=== PATIENT | female | born 1985 | race Caucasian/White ===

== ENCOUNTER 2020-04-08 15:27 | Outpatient (CLI) | payer MEDICARE, MEDICAID, SELFPAY ==
--- NOTE | ~2020-04-08 | MR_ITS ---
EXAMINATION: MR thoracic spine wo con, MR lumbar spine wo con DATE: 04/08/2020 16:30 INDICATION: Thoracic and lumbar spine pain with radiculopathy TECHNIQUE: 1. Magnetic resonance imaging (MRI) of the thoracic spine was performed without intravenous contrast. Sagittal localizer T1-weighted FSE of the cervicothoracic spine was obtained. Sequences included sag ittal T2-weighted FSE, sagittal fluid sensitive FSE STIR, sagittal T1-weighted FSE and axial T2-weigh kirsten FSE. 2. MRI of the lumbar spine was performed without intravenous contrast. Sequences included sagittal T2 -weighted FSE, sagittal T2-weighted FS FSE, sagittal T1-weighted FSE and axial T2-weighted FSE. COMPARISON: Thoracic spine radiographs and lumbar spine MRI dated 03/19/2018. FINDINGS: THORACIC SPINE MRI: Slight levocurvature of the thoracic spine. Sagittal alignment is normal. Minimal likely physiologic anterior wedging at T11 and T12. Remaining vertebral body heights are normal. T1 hyperintense hemangi marycruz at the right posterior aspect of the T7 vertebral body. Marrow signal is otherwise normal. Mild d isc height loss at T11-T12 with small right paracentral to subarticular zone disc protrusion which re sults in only minimal central canal stenosis. Remaining discs do not extend beyond the endplate pollo ns with no stenosis of the more cephalad thoracic central canal. Multilevel minimal to mild thoracic facet osteoarthritis without associated neural foraminal stenosis. Normal spinal cord signal. Paraver tebral soft tissues are unremarkable. LUMBAR SPINE MRI: Alignment is normal. Minimal anterior wedging at L1. Normal marrow signal. Mild disc desiccation and disc height loss at T12-L1 with small Schmorl's nodes and pelvis endplates. The remaining lumbar disc heights and signal are normal. The conus terminates at L1-L2. Normal cord signal. Paravertebral soft tissues are unremarkable. The following disc levels are specifically discussed: T11-T12: Annular fissure and small right paracentral disc protrusion which indents the right ventral surface of the cord. There is minimal bilateral facet joint osteoarthritis. There is no neural forami nal stenosis. There is mild central canal stenosis. T12-L1: Disc is mildly bulging. There is mild right and minimal left facet joint osteoarthritis. Ther e is no neural foraminal stenosis. There is mild central canal stenosis. L1-L2: Central canal is congenitally small with minimal disc bulge. There is mild bilateral facet chester nt osteoarthritis. There is no neural foraminal stenosis. There is mild central canal stenosis. L2-L3: Central canal is congenitally small with minimal disc bulge. There is mild bilateral facet chester nt osteoarthritis. There is no neural foraminal stenosis. There is mild central canal stenosis. L3-L4: Central canal is congenitally small with minimal disc bulge. There is mild bilateral facet chester nt osteoarthritis. There is no neural foraminal stenosis. There is mild central canal stenosis. L4-L5: Disc is minimally bulging. There is mild left and mild to moderate right facet joint osteoarth ritis. There is mild right neural foraminal stenosis. There is minimal central canal stenosis. L5-S1: The disc does not extend beyond the endplate margin. There is mild bilateral facet joint osteo arthritis. There is no neural foraminal stenosis. There is no central canal stenosis. IMPRESSION: 1. Unchanged mild spondylosis in the lumbar and lower thoracic spine with minimal spondylosis in the upper to mid thoracic spine. Reviewed, dictated and finalized at location A. IMPRESSION: 1. Unchanged mild spondylosis in the lumbar and lower thoracic spine with minim al spondylosis in the upper to mid thoracic spine.
== END 2020-04-08 15:28 | disposition home or self-care (01) ==
PROVIDERS: PCP Family Medicine; Visit Provider Nurse Practitioner Family
DX: M47.27 Other spondylosis with radiculopathy, lumbosacral region (principal); M47.814 Spondylosis without myelopathy or radiculopathy, thoracic region
CPT/HCPCS: 72146; 72148

== ENCOUNTER 2021-05-04 22:11 | Emergency (ER) | payer MEDICARE, MEDICAID, SELFPAY ==
--- NOTE | ~2021-05-04 | CT_ITS ---
EXAMINATION: CT abdomen pelvis wo con DATE: 05/05/2021 00:30 INDICATION: Kidney stones. Flank pain. TECHNIQUE: Computed tomography (CT) of the abdomen and pelvis was performed without intravenous contr ast. The dose-length product was 643.77 mGy-cm. Automated exposure control and iterative reconstructi on technique were employed. COMPARISON: CT dated 06/12/2012. FINDINGS: Lung bases are unremarkable. Heart size normal. No significant pleural or pericardial effus ion. Fatty infiltration of the liver. Status post cholecystectomy. Left adrenal nodularity with calci fications, possibly due to prior infection or trauma. The spleen, pancreas, right adrenal gland and k idneys are unremarkable. No hydronephrosis. Bladder wall is mildly prominent, although not well diste nded. No abnormal pelvic masses or fluid collections. Small fat-containing umbilical hernia. No acute osseous abnormality. No significant vascular abnormality. No lymphadenopathy. No free air or free fl uid. No acute osseous abnormality.. IMPRESSION: 1. Mild bladder wall thickening which may be due to underdistention, although cystitis should be cons idered in the appropriate clinical setting. Reviewed, dictated and finalized at location A. IMPRESSION: 1. Mild bladder wall thickening which may be due to underdistention, although c ystitis should be considered in the appropriate clinical setting.
[2021-05-04 22:17] VITALS: BP 133/77; PULSE 86; RESP 16; TEMP 36.2; O2SAT 99
[2021-05-04 23:11] LABS: Basophils Absolute Auto 0.1 K/mm3 (0.0-0.1); Basophils Percent Auto 0.6 % (0.2-1.2); Eosinophils Absolute Auto 0.1 K/mm3 (0-0.3); Eosinophils Percent Auto 0.9 % (0-4.4); Hematocrit 38.7 % (37.0-47.0); Hemoglobin 13.7 g/dL (12.0-15.0); Immature Granulocyte Absolute 0.03 K/mm3 (0.00-0.031); Immature Granulocyte Percent A 0.3 % (0-0.5); Lymphocytes Absolute Auto 4.57 K/mm3 (0.9-3.2); Lymphocytes Percent Auto 40.4 % (18.3-44.2); Mean Corpuscular HGB Conc 35.4 g/dl (32-36); Mean Corpuscular Hemoglobin 32.2 pg (26-34); Mean Corpuscular Volume 91.1 fl (80-100); Mean Platelet Volume 9.9 fl (7.4-10.4); Monocytes Absolute Auto 0.6 K/mm3 (0.1-0.6); Monocytes Percent Auto 4.9 % (2.6-8.5); Neutrophils Percent Auto 52.9 % (45.5-73.1); Platelet Count Result 279 k/mm3 (150-375); Red Blood Count 4.25 M/mm3 (4.2-5.4); Red Cell Distribution Width 13.1 % (11.5-14.5); White Blood Count 11.3 K/mm3 (4.5-10.0)
[2021-05-04] MEDS: SODIUM CHLORIDE 0.9% IV 1,000 ML 999 ML IV CONT (23:20)
[2021-05-04 23:22] VITALS: BP 117/72; PULSE 77; RESP 21; O2SAT 97
--- NOTE | 2021-05-04 23:30 | PC.NURSE ---
. asked for urine sample. pt. reports she cannot go at this time.
[2021-05-04 23:37] LABS: Anion Gap 7 mmol/L (8-16); Blood Urea Nitrogen 5 mg/dL (7-17); Calcium 8.9 mg/dL (8.4-10.2); Carbon Dioxide 31 mmol/L (22-30); Chloride 98 mmol/L (98-107); Estimated CRCL calculation 126 ml/min; Estimated Glomerular Filt Rate > 60; Glucose 93 mg/dL (65-110); Potassium 2.5 mmol/L (3.4-5.0); Sodium 136 mmol/L (137-145)
--- NOTE | 2021-05-05 00:40 | ED.GENADULT ---
HPI - General Adult General Chief complaint: Back Pain/Injury <ARCHANA Peña Last Filed: 05/05/21 01:41> Stated complaint: left flank pain <ARCHANA Peña Last Filed: 05/05/21 01:41> Time Seen by Provider: 05/04/21 22:58 <ARCHANA Peña Last Filed: 05/05/21 01:41> Source: patient and RN notes reviewed <ARCHANA Peña Last Filed: 05/05/21 01:41> Mode of arrival: ambulatory <ARCHANA Peña Last Filed: 05/05/21 01:41> Limitations: no limitations <ARCHANA Peña Last Filed: 05/05/21 01:41> History of Present Illness HPI narrative: Patient is a 35-year-old female who presents with left-sided flank pain for the last 2 days patient denies any fever chills nausea vomiting urinary symptoms or bowel habit changes patient on arrival appears uncomfortable but not distressed patient presents with family and has not been seen for this complaint <ARCHANA Peña Last Filed: 05/05/21 01:41> Related Data Home medications: Home Medications Medication Instructions Recorded Confirmed bupropion HCl 75 mg tablet 75 mg PO DAILY tablet 05/05/21 05/05/21 famotidine 20 mg tablet 20 mg PO 3XW tablet 05/05/21 05/05/21 metoclopramide HCl 10 mg tablet 10 mg PO BID tablet 05/05/21 05/05/21 <ARCHANA Peña Last Filed: 05/05/21 01:41> Allergies/adverse reactions: Allergies Allergy/AdvReac Type Severity Reaction Status Date / Time No Known Allergies Allergy Verified 01/11/21 10:32 <ARCHANA Peña Last Filed: 05/05/21 01:41> Review of Systems Review of Systems: All systems reviewed & are unremarkable except as noted in HPI and below <ARCHANA Peña Last Filed: 05/05/21 01:41> PMFSH Past Medical History Medical History: Medical History (Updated 05/05/21 @ 12:27 by Jory He MD) Anxiety Chronic left shoulder pain Chronic low back pain GERD without esophagitis Intellectual disability Speech impediment <GARRISON PeñaCassie - Last Filed: 05/05/21 01:41> Family History Family History: Family History Mother Patient's mother is in good health Father Family history of malignant neoplasm Patient's father is Other Cerebrovascular accident Diabetes mellitus <Jose MartinARCHANA - Last Filed: 05/05/21 01:41> Social History Social History: Social History Smoking packs per day: 0.5 Smoking cigarettes per day: 10.0 Smoking status: Former smoker Second hand tobacco smoke exposure: No Smoking end date: 10/08/12 Alcohol intake: never <Jose Martin ARCHANA Last Filed: 05/05/21 01:41> Exam Narrative: GENERAL: Well-appearing, well-nourished, and in no acute distress. HEAD: Normocephalic, atraumatic. EYES: PERRLA and EOMI. ENT: Nares clear, no rhinorrhea or epistaxis. Mucous membranes moist. CHEST: Clear to auscultation. No respiratory distress. No wheezes rales or rhonchi HEART: Regular rate and rhythm. No murmur heard. Normal peripheral pulses. ABDOMEN: Soft, left sided abdominal tenderness no rebound or guarding, nondistended, normal active bowel sounds. EXTREMITIES: Normal range of motion. No edema. SKIN: Warm, dry, no rash. NEURO: No focal deficits. Alert and oriented x3. Cranial nerves II through XII grossly intact PSYCH: Normal mood and affect. <Jose Martin RENEArCassie - Last Filed: 05/05/21 01:41> Course Vital Signs Vital signs: Vital Signs Temperature 36.2 C L 05/04/21 22:17 Pulse Rate 86 05/04/21 22:17 Respiratory Rate 16 05/04/21 22:17 Blood Pressure 133/77 05/04/21 22:17 Pulse Oximetry 99 05/04/21 22:17 Temperature 36.2 C L 05/04/21 22:17 Pulse Rate 83 05/05/21 01:54 Respiratory Rate 18 05/05/21 01:54 Blood Pressure 108/59 L 05/05/21 01:54 Pulse Oximetr
[2021-05-05 01:22] LABS: Add Urine Microscopic? NO; Appearance Urine Clear (Clear); Bilirubin Urine Negative (Negative); Blood Urine Negative (Negative); Color Urine Straw (Yellow); Glucose Urine UA Negative (Negative); Ketones Urine Negative (Negative); Leukocyte Esterase Ur Negative LEU/UL (Negative); Nitrate Urine Negative (Negative); Protein Urine Negative (Negative); Specific Grav Ur 1.008 (1.001-1.035); Urobilinogen Urine Negative mg/dL (<2.0)
[2021-05-05] MEDS: POTASSIUM CHLORIDE 20 MEQ PACKET (FOR LIQUID) 40 MEQ PO (01:35)
[2021-05-05 01:54] VITALS: BP 108/59; PULSE 83; RESP 18; O2SAT 98
== END 2021-05-05 01:57 | disposition home or self-care (01) ==
PROVIDERS: Emergency Medicine; Emergency Medicine Emergency Medical Services; Emergency Provider Emergency Medicine; PCP Family Medicine
DX: E87.6 Hypokalemia (principal); R10.9 Unspecified abdominal pain; F41.9 Anxiety disorder, unspecified; K21.9 Gastro-esophageal reflux disease without esophagitis
CPT/HCPCS: 36415; 74176; 80048; 81003; 81025; 83735; 85025; 96361; 96374; 99284; A9270; J0131; J7030

== ENCOUNTER 2025-03-07 20:22 | Emergency (ER) | payer OTHER, SELFPAY ==
--- NOTE | ~2025-03-07 | CT_ITS ---
EXAMINATION: CT abdomen pelvis w con DATE: 03/08/2025 01:05 INDICATION: Right upper quadrant abdominal pain. Leukocytosis. TECHNIQUE: Computed tomography (CT) of the abdomen and pelvis was performed with 100 mL Omnipaque-350 intravenous contrast. Automated exposure control and iterative reconstruction technique were employe d. The dose-length product was 902.16 mGy-cm. COMPARISON: None FINDINGS: Lung bases are clear. Heart size is normal. No pericardial or pleural effusion. Cholecystectomy clips the gallbladder fossa. Liver, spleen, pancreas, bilateral kidneys and right adrenal gland are normal . Calcifications at the left adrenal gland likely sequela prior infection or hemorrhage. Bowels inclu ding the appendix are normal. Bladder is normal. Uterus and right adnexa are unremarkable. 1.7 cm per ipherally enhancing corpus luteum cyst at the left ovary. Small bilateral fat-containing inguinal her nias. Tiny fat-containing umbilical hernia. No free intraperitoneal gas or fluid. 7.5 x 7.5 x 2.2 cm loculated fluid collection in the subcutaneous fat at the right buttock which could represent an absc ess or hematoma/seroma. IMPRESSION: 1. No acute intra-abdominal/pelvic process. 2. 7.5 x 7.5 x 2.2 cm loculated subcutaneous fluid collection at the right buttock which could repres ent a hematoma/seroma or abscess in the appropriate clinical setting. Dr. Kenyon discussed these fi ndings with Dr. Cardenas at 11:15 AM. 3. Bilateral small fat-containing inguinal hernias and tiny fat-containing umbilical hernia. Reviewed, dictated and finalized at location A. IMPRESSION: 1. No acute intra-abdominal/pelvic process. 2. 7.5 x 7.5 x 2.2 cm loculated subcutaneous fluid collection at the right butt ock which could represent a hematoma/seroma or abscess in the appropriate clini antony setting. Dr. Kenyon discussed these findings with Dr. Cardenas at 11:15 AM. 3. Bilateral small fat-containing inguinal hernias and tiny fat-containing umbi lical hernia.
--- OUTSIDE RECORDS SUMMARY | 2025-03-07 20:26 | XMS_ITS | Data Portability ---
Author Organization [facility] Address [address] [place] [address] Assessment No assessment recorded. Plan of Treatment Reminders Order Date Submit Date Provider Last Modified By Organization Details Last Modified Time Details Appointments None recorded. Lab cytology report, thin prep, smear or scraping, cervical or vaginal 2024 025 [facility], [address], [place], [address], 5 03:17:57 chlamydia trachomatis + neisseria gonorrhoeae + trichomonas vaginalis rRNA panel, TARA+probe 2024 025 [facility], [address], [place], [address], 5 03:08:24 Referral None recorded. Procedures None recorded. Surgeries None recorded. Imaging None recorded. Medication Orders None recorded. Patient TargetsNo targets recorded. Patient Instructions Encounter Date Encounter Id Patient Instructions Last Modified By Organization Details Last Modified Time 11/17/2024 [id number] Attending Physician Attestation I did not personally see or examine the patient with the resident. I was physically present to provide indirect supervision through entire encounter. I have reviewed the documentation and agree with the history, physical findings, work-up, and medical decision making as recorded. Ladonna Austin MD [email or web address] Not available 11/17/2024 12:15:41 Reason for Referral None Reported. Results Created Date Observation Date Name Description Value Unit Range Abnormal Flag Note LastModifiedBy Organization Detail LastModifiedTime 11/17/19 25 11/18/2024 CT, NG, TRICH VAG BY TARA chlamydia by TARA NEGATI VE negati ve Not Available [facility]) [address], [place], [address], 11/19/2024 03:08:24 11/17/19 25 11/18/2024 CT, NG, TRICH VAG BY TARA gonococcus by TARA NEGATI VE negati ve Not Available [facility]) [address], [place], [address], 11/19/2024 03:08:24 11/17/19 25 11/18/2024 CT, NG, TRICH VAG BY TARA trich vag by TARA NEGATI VE negati ve Not Available [facility] ([facility]) [address], [place], [address], 11/19/2024 03:08:24 11/17/1911/18/2024 IGP, APTIM A HPV, RFX 16/18 ,45 HPV aptima POSITI VE negati ve abnormal This nucle ic acid ampli ficat ion test detec ts fourt een high- risk HPV types (16,1 8,31, 33,35 ,39,4 5,51, 52,56 ,58,5 9,66, 68) witho ut diffe renti ation . Not Available [facility] ([facility]) [address], [place], [address], 11/21/2024 03:17:57 11/17/1911/19/2024 IGP, APTIM A HPV, RFX 16/18 ,45 diagnosis: COMMEN T NEGAT DARA FOR INTRA EPITH ELIAL LESIO N OR ELIZABETH JOSE . Not Available [facility] ([facility]) [address], [place], [address], 11/21/2024 03:17:57 11/17/1911/19/2024 IGP, APTIM A HPV, RFX 16/18 ,45 specimen adequacy: COMMEN T Satis facto ry for evalu ation . Endoc ervic al and/o r squam ous metap lasti c cells (endo cervi antony compo nent) are prese nt. Not Available [facility] ([facility]) [address] [place], [address], 11/21/2024 03:17:57 11/17/19 25 11/19/2024 IGP, APTIM A HPV, RFX 16/18 ,45 clinician provided ICD10: HENRIQUE Asher Z01.4 19 Not Available [facility] ([facility]) [address] [place], [address], 11/21/2024 03:17:57 11/17/19 25 11/19/2024 IGP, APTIM A HPV, RFX 16/18 ,45 performed by: HENRIQUE Trevino ams, Luaren asher (ASCP ) Not Available [facility] ([facility]) [address] [place], [address], 11/21/2024 03:17:57 11/17/19 25 11/19/2024 IGP, APTIM A HPV, RFX 16/18 ,45 . . Not Available [facility] ([facility]) [address] [place], [address], 11/21/2024 03:17:57 11/17/19 25 11/19/2024 IGP, APTIM A HPV, RFX 16/18 ,45 note: HENRIQUE Asher The Pap smear is a scree jodie test timmy florez to aid in the detec tion of kailyn ligna nt and malig nant condi tions of the uteri ne cervi x. It is not a diagn ostic proce dure and shoul d not be used as the sole means of detec ting cervi antony cance r. Both false -posi tive and false -nega tive repor ts do occur . Not Available [facility]) [address], [place], [address], 11/21/2024 03:17:57 11/17/19 25 11/19/2024 IGP, APTIM A HPV, RFX 16/18 ,45 test methodology: HENRIQUE T This liqui d based ThinP rep(R ) pap test was daniel florez with the use of an image guide deepak thorne Not Available [facility] ([facility]) [address] [place], [address], 11/21/2024 03:17:57 11/17/1911/19/2024 IGP, APTIM A HPV, RFX 16/18 ,45 HPV genotype reflex COMMEN T Erikate argelia met, see HPV Genot ype resul ts. Not Available [facility] ([facility]) [address] [place], [address], 11/21/2024 03:17:57 11/17/19 25 11/20/2024 HPV GENOT YPES 16/18 ,45 HPV genotype 16 Negati ve negati ve Not Available [facility] ([facility]) [address], [place], [address], 11/21/2024 03:17:59 11/17/1911/20/2024 HPV GENOT YPES 16/18 ,45 HPV genotype 18,45 Negati ve negati ve Not Available [facility] ([facility]) [address] [place], [address], 11/21/2024 03:17:59 Result Notes None recorded. Problems Name Problem SNOMED Code Status Onset Date Resolution Date Notes Provider Name and Address Organization Details Recorded Time Obesity 203802294 Active 2024 KYLEE EDGE MD Attn: Carmelo eubanks,[address], [place], [address], [facility] 11:56:21 Arthritis 7504878 Active 2024 KYLEE EDGE MD Attn: Carmelo eubanks,[address], [place], [address], [place] - [facility] 5 11:56:51 Type 2 diabetes mellitus 70369042 Active 2024 KYLEE EDGE MD Attn: Carmelo eubanks,[address] [facility], [place], [address], [facility] 5 11:57:54 Gastroesophage al reflux disease 142796762 Active 2024 KYLEE EDGE MD Attn: Carmelo eubanks,[address], [place], [address], [facility] - [facility] 5 12:04:08 Intellectual disability 002302047 Active 2024 KYLEE EDGE MD Attn: Carmelo eubanks,[address] [facility], [place], [address], [facility] 5 12:04:24 Problem Notes None recorded. Medical Equipment None Reported. Allergies No known drug allergies Medications Name Sig Start Date Stop Date Status Note LastModified by Organization Details LastModified Time cyclobenzap rine 10 mg tablet Take 1 tablet 3 times a day by oral route. active Not Available Not Available No t Available gabapentin 600 mg tablet Take 1 tablet 3 times a day by oral route. active Not Available Not Available No t Available ibuprofen 800 mg tablet Take 1 tablet 3 times a day by oral route. active Not Available Not Available No t Available sucralfate 1 gram tablet Take 1 tablet 3 times a day by oral route. active Not Available Not Available No t Available famotidine 40 mg tablet Take 1 tablet every day by oral route. active Not Available Not Available No t Available prednisone 20 mg tablet Take 1 tablet 3 times a day by oral route. 11/17 completed Not Available Not Available Not Available ciprofloxac in 500 mg tablet TAKE 1 TABLET BY MOUTH EVERY 12 HOURS FOR 3 DAYS 11/17 completed Not Available Not Available Not Available propranolol 10 mg tablet Take 1 tablet 3 times a day by oral route. active Not Available Not Available No t Available amitriptyli ne 25 mg tablet Take 1 tablet every day by oral route. active Not Available Not Available No t Available dicyclomine 20 mg tablet Take 1 tablet 3 times a day by oral route. active Not Available Not Available No t Available gemfibrozil 600 mg tablet TAKE 1 TABLET BY MOUTH TWICE DAILY DIRECTED active Not Available Not Available No t Available pantoprazol e 40 mg tablet,aissatou yed release Take 1 tablet every day by oral route. active Not Available Not Available No t Available bupropion HCl 75 mg tablet TAKE 1 TABLET BY MOUTH TWICE DAILY active Not Available Not Available No t Available metformin ER 500 mg tablet,exte nded release 24 hr TAKE 1 TABLET BY MOUTH EVERY DAY DIRECTED FOR DIABETES active Not Available Not Available No t Available colestipol 1 gram tablet TAKE 2 TABLETS BY MOUTH EVERY DAY IN THE MORNING active Not Available Not Available No t Available metoclopram jillian 10 mg tablet Take 1 tablet 3 times a day by oral route as needed. active Not Available Not Available No t Available duloxetine 20 mg capsule,del ayed release Take 1 capsule every day by oral route. active Not Available Not Available No t Available duloxetine 60 mg capsule,del ayed release Take 1 capsule every day by oral route. active Not Available Not Available No t Available Vitals Date Recorded Body weight Body mass index (BMI) Body height Oxygen saturation Oxygen saturation in Arterial blood by Pulse oximetry Heart rate Systolic blood pressure Diastolic blood pressure Provider Name and Address Organization Details Last Updated DateTime 58035.0 1 g 35.1 kg/m2 160.02 cm 96 % 96 % 98 /min 126 mm[Hg] 88 mm[Hg] Unique Peres MA [facility] 11:37:42 Social History Question Answer Notes LastModified by [employer] Details LastModified Time Tobacco Smoking Status Former Smoker Unique Peres MA null, [facility] 11/17/2024 11:34:41 What Was The Date Of Your Most Recent Tobacco Screening? 11/17/2024 Information not available 11/17/2024 Do You Have Smoke And Carbon Monoxide Detectors In Your Home? Yes Information not available 11/17/2024 Sex: Unknown Functional Status Question Answer Note LastModified by Organizat ion Details LastModified Time Do you use any illicit or recreational drugs? No Information not available 11/17/2024 Do you or have you ever used any other forms of tobacco or nicotine? No Information not available 11/17/2024 What is your level of alcohol consumption? None Information not available 11/17/2024 Mental Status None recorded. Family History Relationship Description Onset Age of this Age Resolved Age Notes LastModified by Organization Details LastModified Time Sister Depressive disorder [email or web address] Not available 11/08 11:35:49 Sister Migraine [email or web address] Not availa ble 11/17/2024 11:36:01 Notes:ovarian cancer sister Medical History Condition Response Diabetes Y Anxiety Disorder Y Acid Reflux (GERD) Y Depression Y Gynecological History Statement/Question Response Flow Moderate Date of LMP 11/13/2024 Menses Monthly Y STIs/STDs N Duration of Flow (days) 4 Age at Menarche 10 Current Control Method None LMP Definite Obstetrics History GPAL:G 1 P 1 0 0 1 Type Value Multiple Births 0 Full Term 1 Induced 0 Spontaneous 0 Premature 0 Living 1 Ectopics 0 Total 1 Past Encounters Encounter ID Performer Location Encounter Start Date Encounter Closed Date Diagnosis/Indication Diagnosis SNOMED-CT Code Diagnosis ICD10 Code Diagnosis Note [id number] LADONNA AUSTIN MD [facility] (PHOTOGRAPHY MANAGER) [address] [place] [phone] 11/17/2024 10:44:11 11/26/2024 14:30:44 Gynecologic examination 55958771 Z01.419 - Reviewed risks for infection and cancer; ordered screening tests as appropriat e- Patient to follow up with PCP for routine cardiovasc ular disease screening Health Concerns Section Related Observation LastModified by Organization Detai ls LastModified Time None Recorded Concern Status LastModified by Organization Details LastModified Time None Recorded Advance Directives Directive None Recorded Payers Encounter Date Sequence Insurance Name Policy Number Policy Alexander Covered Member ID Alexander Member ID Guarantor Name 11/17/2024 1 [place] Stephani Mcneill [id number] Stephani Mcneill 11/17/2024 2 [employer] [place] - [place] ON OR AFTER 2020 (MEDICAID REPLACEMENT - HMO) Stephani Mcneill [id number] Stephani Mcneill Notes Date Note Type Note Provider Name and Address Organization Details Recorded Time 11/17/2024 text/html Annual GYNReport ed bypatient.Menstrua l cycle:Normal menses Urinary symptoms:No hematuria; No incontinence Vulva:No genital lesion Vagina:Normal vaginal discharge Breast:No breast pain; No breast lump; No nipple discharge Sexual complaints:Denies being sexually active. No concern for STI.Notes:Mammogra m ordered through primary. Stephani is a 39 y/o F former nicotine dependence, T2DM, arthritis who presents to the clinic to establish care. Previously saw [facility]. Has not been seen in at least 3 or 4 years. No issues today.Is on social security. LADONNA AUSTIN MD Attn: [employer]ing[address] [place], [address], [facility] 11/25/2024 17:57:12 OBGyn Episode Ob Episode Information Episode Created Date Number of Fetuses Patient Bloodtype Patient rh Status Prepregnancy Weight lbs Domestic Partner Domestic Partner Phone Father Name [employer] Manager Architect Status 11/17/19 25 1 CLOSED Fetus Data First Name Last Name Admitted to NICU Weight (g) Sex Living Outcome Pediatric Complications Fetus ID Race Codes Race Delivery Type F Full Term [id number] Vaginal Phillip Calculation Initial Phillip Date Initial Exam Date Initial Exam Provider Initial Ultrasound Date Last Menstrual Period Date Ultra Sound Weeks Gestation 0 Eighteen To Twenty Week Phillip Update Ultra Sound Date Fundal Height At Umbil Quickening Date Ultra Sound Latest Weeks Gestation Final Phillip Confirmed By Final Phillip Confirmed Date Final Phillip Date Ultra Sound Latest Days Gestation 0 0 Menstrual History Last Menstrual Date Menses Monthly On Bcp Conception Prior Menses Frequency Hcg Plus Date Menarche Onset Age Delivery Information Delivery Date Delivery Type Labor Anesthesia Weeks Gestation Incision Type Labor Labor Length Hrs Delivered By Post Complications Tubal Sterilization Discharge Date Comments 0 40 Discharge Information Feeding Method Contraceptive Method Maternal HG B and HCT Levels
--- OUTSIDE RECORDS SUMMARY | 2025-03-07 20:26 | XMS_ITS ---
Author Organization [facility] Address [address] [place] [address] Care Team Providers Care Director Of Marketing And Promotions Name Role Phone ThrasherVuJon Unavailable [phone] BAKARI LEE Unavailable [phone] Problems Problem Type SNOMED Code ICD Code Onset Dates Problem Status W/U Status Risk Notes Problem Chronic kidney disease stage 2 (959677290) Chronic kidney disease, stage 2 (mild) (N18.2) Active confirmed Problem Elevation of levels of liver transaminase levels (R74.01) Active confirmed Problem Hyperlipidemia (32867962) Hyperlipidemia, unspecified (E78.5) Active confirmed Problem Diabetic renal disease (430493278) Type 2 diabetes mellitus with diabetic chronic kidney disease (E11.22) Active confirmed Problem Metabolic disorder (11237250) Metabolic disorder, unspecified (E88.9) Active confirmed Problem Disturbance in speech (88465848) Unspecified speech disturbances (R47.9) Active confirmed Problem Fatty liver (476935599) Fatty (change of) liver, not elsewhere classified (K76.0) Active confirmed Encounters Encounter Location Date Provider Diagnosis [place] [facility] [address] [facility] [address] [place] [address] 02/20/2025 Jon Thrasher Chronic kidney disease, stage 2 (mild) N18.2 ; Elevation of levels of liver transaminase levels R74.01 ; Hyperlipidemia, unspecified E78.5 ; Type 2 diabetes mellitus with diabetic chronic kidney disease E11.22 ; Metabolic disorder, unspecified E88.9 ; Unspecified speech disturbances R47.9 and Fatty (change of) liver, not elsewhere classified K76.0 Assessments Encounter Date Diagnosis (ICD Code) Assessment Notes Treatment Notes Treatment Clinical Notes Section Notes 02/20/2025 Chronic kidney disease, stage 2 (mild) (ICD-10 - N18.2) 02/20/2025 Elevation of levels of liver transaminase levels (ICD-10 - R74.01) 02/20/2025 Hyperlipidemia, unspecified (ICD-10 - E78.5) 02/20/2025 Type 2 diabetes mellitus with diabetic chronic kidney disease (ICD-10 - E11.22) 02/20/2025 Metabolic disorder, unspecified (ICD-10 - E88.9) 02/20/2025 Unspecified speech disturbances (ICD-10 - R47.9) 02/20/2025 Fatty (change of) liver, not elsewhere classified (ICD-10 - K76.0) Plan Of Treatment Next Appt Details Provider Name:Jon Price , 03/27/2025 02:15:00 PM, [address] [facility] [address], [place], [facility], Progress Notes * Manuel NAVAOB:[birth year] (39 yo F)Acc No.[id number]:02/20/2025 Progress Notes Patient: Stephani MONSALVE Provider: Leo PAT MD, F.A.C.P, F.A.S.N. :1985 A ge:39 Y S ex:Female Date:02/20/2025 Address:[address] [place] [address] Subjective: * Chief Complaints: * * Medical History: Objective: * Vitals: Assessment: * Assessment: 1. C hronic kidney disease, stage 2 (mild) - N18.2 (Primary) 2 . E levation of levels of liver transaminase levels - R74.01 3 . H yperlipidemia, unspecified - E78.5 4 . T ype 2 diabetes mellitus with diabetic chronic kidney disease - E11.22 5 . M etabolic disorder, unspecified - E88.9 6 . U nspecified speech disturbances - R47.9 7 . F atty (change of) liver, not elsewhere classified - K76.0 Plan: * Treatment: * Billing Information: * Visit Code: 55854 Office Visit, New Pt., Level 5. * Procedure Codes: * Electronic signature of Mallory Thrasher MD on 03/07/2025 at 08:26 PM CDT Sign off status: Pending * Provider: Leo PAT MD, F.A.C.P, F.A.S.N. Date: 0 02/20/2025 Generated for Printing/Faxing/eTransmitting on: 0 03/07/2025 08:26 PM CDT
--- OUTSIDE RECORDS SUMMARY | 2025-03-07 20:26 | XMS_ITS | CONTINUITY OF CARE DOCUMENT ---
Author Name shailesh cash Address Unknown Organization [facility] Address [address] [facility] [address] [place] [address] Phone [phone] Care Team Providers Care Repatcher Name Role Phone Dusty Thrasher MD Unavailable [phone] Dusty Thrasher MD Unavailable [phone] INSURANCE PROVIDERS Payer name Policy type / Coverage type [place] red green party ID [employer] [facility] use Medicare [id number] [employer] OF [place] Medicaid [id number]
--- OUTSIDE RECORDS SUMMARY | 2025-03-07 20:26 | XMS_ITS | Patient Health Record ---
Author Organization [facility] Address [address] [place] [address] Care Team Providers Care Microarray Specialist Name Role Phone ThrasherKimt Unavailable [phone] CHANELLPraveenBAKARI Unavailable [phone] Reason For Referral No Information Problems Problem Type SNOMED Code ICD Code Onset Dates Problem Status W/U Status Risk Notes Problem Diabetic renal disease (515500553) Type 2 diabetes mellitus with diabetic chronic kidney disease (E11.22) Active confirmed Problem Hyperlipidemia (22220849) Hyperlipidemia, unspecified (E78.5) Active confirmed Problem Metabolic disorder (91621445) Metabolic disorder, unspecified (E88.9) Active confirmed Problem Fatty liver (591268651) Fatty (change of) liver, not elsewhere classified (K76.0) Active confirmed Problem Chronic kidney disease stage 2 (654422413) Chronic kidney disease, stage 2 (mild) (N18.2) Active confirmed Problem Disturbance in speech (45308939) Unspecified speech disturbances (R47.9) Active confirmed Problem Elevation of levels of liver transaminase levels (R74.01) Active confirmed Encounters Encounter Location Date Provider Diagnosis [place] [facility] [address] [facility] [address] [place] [address] 02/20/2025 Jon Thrasher Chronic kidney disease, stage [...] Of Treatment Next Appt Details Provider Name:Jon Thrasher , 03/27/2025 02:15:00 PM, [address] [facility] [address], [address],
--- OUTSIDE RECORDS SUMMARY | 2025-03-07 20:27 | XMS_ITS | Data Portability ---
Author Organization [place] [facility], Main Office Address [address] [place] [address] Care Team Providers Care Scrap Collector Name Role Phone ARBEN RINALDI Primary Care Provider Assessment No assessment recorded. Plan of Treatment Reminders Order Date Submit Date Provider Last Modified By Organization Details Last Modified Time Details Appointments Any 15 2024 04:15P M Nicolle draper MD Not available Not available Not available New Patie nt 40 2024 01:00P M BALBIR Pederson Not available Not available Not available Lab lipid panel , serum [address] (Lab), [address] [place], [address], 02/17/2025 17:05:38 CBC w/ auto diff [address] (Lab), [address] [place], [address], 02/17/2025 17:05:39 TSH, serum or plasm a 2024 025 [facility] (Lab), [address] [place], [address], 02/10/2025 17:41:02 CMP, serum or plasm a [address] (Lab), [address] [place], [address], 02/17/2025 17:05:39 glyco hemog lobin , total , blood 2024 025 [facility] (Lab), [address] [place], [address], 02/10/2025 20:27:55 micro album in, urine 2024 025 [facility] (Lab), [address] [place], [address], 02/10/2025 17:18:50 CBC w/ auto diff 2024 025 [facility] (Lab), [address] [place], [address], 11/06/2024 14:33:30 CMP, serum or plasm a 2024 025 [facility] (Lab), [address] [place], [address], 11/06/2024 14:33:30 lipid panel , serum 2024 025 [facility] (Lab), [address] [place], [address], 11/06/2024 14:33:29 vitam in D, 25-hy droxy , total , serum 2024 025 [facility] (Lab), [address] [place], [address], 11/06/2024 14:33:30 TSH + free T4, serum 2024 025 [facility] (Lab), [address] [place], [address], 11/06/2024 14:33:30 hepat itis C virus Ab, serum 2024 025 [facility] (Lab), [address] [place], [address], 11/06/2024 14:33:30 HbA1c (hemo globi n A1c), blood 2024 025 [facility] (Lab), [address] [place] [address], [address], 11/06/2024 14:33:29 Referral pain manag ement refer ral - Pleas call patie nt to sched ule an appoi ntmen t. Thank you. 2024 025 [facility], [facility] [address], [place], [address], 02/12/2025 13:13:56 physi antony thera pist refer ral - Pleas e call patie nt to sched ule an appoi ntmen t. Thank you. 2024 025 [facility], [address] [place] [address], [address], 02/11/2025 16:02:21 gastr oente rolog ist refer ral - Pleas e call patie nt to sched ule an appoi ntmen t. Thank you. 2024 025 [facility], [address] [place] [address], [address], [address], 02/12/2025 12:37:[address] refer ral - Pleas e call patie nt to sched ule an appoi ntmen t. Thank you 2024 025 [facility], [address], [address], 02/12/2025 12:11:00 gastr oentmichel rolog ist refer ral - Pleas e call patie nt to sched ule an appoi ntmen t. Thank you. 2024 025 [facility], [address] [facility]udy [facility], [address], [place], [address], 02/11/2025 15:52:23 podia trist refer ral - Pleas e call patie nt to sched ule an appoi ntmen t. Thank you. 2024 025 [facility], [address] [facility], [address], [place], [address], 02/11/2025 15:31:40 neuro logis t refer ral - Pleas e call patie nt to sched ule an appoi ntmen t. Thank you. 2024 025 [facility] Nelson Wadsworth MD, [address] [facility], [facility], [place], [address], 03/03/2025 12:20:37 physi antony thera pist refer ral - Pleas e call pt to sched ule 2023 024 56 [facility], [facility], [address] [place], [address], 08/27/2024 08:54:38 Procedures None recor ded. Surgeries None recor ded. Imaging MAMMO , scree jodie, bilat eral - Pleas e call patie nt to sched ule. 2024 025 [email or web address] [facility] ([facility]), [address] [place], [address], 02/11/2025 14:23:47 XR, cervi antony spine , 2 or 3 view 2024 025 [facility] ([facility] Scheduling), [address] [place], [address], 11/17/2024 13:53:47 XR, thora cic spine , 3 view 2024 025 [facility] ([facility] Scheduling), [address] [place], [address], 11/17/2024 13:54:13 XR, lumbo sacra l spine , 4 or more view 2024 025 [facility] ([facility] Scheduling), [address] [place], [address], 11/13/2024 17:29:46 MAMMO , scree jodie, digit al, bilat eral - Pleas e call patie nt to sched ule. 2024 025 [email or web address] [facility] (Scheduling), [address] [place], [address], 12/17/2024 11:23:00 Medication Orders lisin opril 2.5 mg table t [email or web address] [id number], [address], [place], [place], [id number], 02/10/2025 18:53:13 Conto ur Next Test Strip s 2024 025 [facility]88386, [address], [place], [place], [id number], 11/13/2024 11:58:00 Alcoh ol Prep Pads 2024 025 [facility] #10744, [address], [place], [place], [id number], 11/13/2024 11:58:04 bupro pion HCl 75 mg table t 2024 025 [facility] #48958, [address], [place], [place], [id number], 11/13/2024 11:58:06 ketor olac 30 mg/mL (1 mL) injec tion solut ion 2023 024 [email or web address] Not available 02/10/2025 14:54:29 bupro pion HCl 75 mg table t 2023 024 [email or web address] [facility], [address], [place], [place], [id number], 07/28/2024 11:03:45 Patient TargetsNo targets recorded. Patient Instructions Encounter Date Encounter Id Patient Instructions Last Modified By Organization Details Last Modified Time 11/05/2024 [id number] Follow up in 3 months for Medicare Annual Wellness (Arben) Obtain labs Tests: Mammogram Referral: Recommend: Tetanus vaccine Not available 11/05/2024 14:55:52 11/13/2024 [id number] dementia rating scale-2* Not available 11/13/2024 11:57:51 multi-dimensiona l health assessment questionnaire* Not available 11/13/2024 11:57:51 care plan* Not available 11/13 11:57:50 advance directiv es: care instructions Not available 11/13/2024 11:57:51 advance care planning: care instructions Not available 11/13/2024 11:57:50 [place] Advance Directives Not available 11/13/2024 11:57:50 Follow up in Jan [place] Prescriptions sent to pharmacy Tests: Complete xrays Referral: Recommend: Tetanus vaccine Shingles vaccine Personalized Health Plan and Screening Recommendations Advance Directives - Do you have one? No You have indicated that you are capable of preparing your advance care directive Advance Directives - Do we have your advance directive on file in your health record? Primary Prevention/Interven tion (prevents or decreases the chance of common diseases from occurring) Smoking Risk: Non Smoker Alcohol Misuse Screening: Negative Weight: Overweight try to lose 10% of your body weight Physical activity: Appropriate physical activity minimum of 20-30 minutes activity that causes mild breathlessness/day Nutrition: Average Refer to attached handout Heart-Healthy Diet: After Your Visit Fall Risk (screened today): Low Refer to attached handout Preventing Falls: After your Visit Vaccines Pneumococcal: No further needed Influenza: Your next one in the fall of this year Chronic Disease Risks Stroke: Intermediate Risk I have no recommendations Heart Attack: Intermediate Risk I have no recommendations Clogging of the Arteries: Intermediate Risk I have no recommendations Diabetes: High Risk Active diagnosis, Continue current treatment plan Secondary Prevention/Interven tion (detects treatable diseases before they may cause symptoms, disability, or ) Breast Cancer Screening with mammogram: Ordered Cervical/Uterine/Ov jaylan Cancer Screening: Recommended today Osteoporosis Screening: No screening necessary Date Screening Last Performed: Colon Cancer Screening: No screening necessary Date Screening Last Performed: Eye Disease Screening: Recommended today Dementia Risk: Low I have no recommendations Depression Screening: Negative Not available 11/13/2024 11:56:33 02/10/2025 [id number] diabetic eye exam* ATHENAFAX Not availa ble 02/10/2025 17:24:25 Reason for Referral Physical Therapist Referral for Low back pain Please call pt to schedule Referring Physician: Arben Rinaldi, Family Medicine, Encounter Date: 07/28/2024 University Administrative Assistant Referral for Type 2 diabetes mellitus without complication Please call patient to schedule an appointment. Thank you. Referring Physician: Nicolle Ayala, Internal Medicine, Encounter Date: 02/10/2025 Psychiatrist Referral for Mo derate recurrent major depression Please call patient to schedule an appointment. Thank you Referring Physician: Nicolle Ayala Internal Medicine, Encounter Date: 02/10/2025 Training Program Manager Referral for Irritable bowel syndrome Please call patient to schedule an appointment. Thank you. Referring Physician: Nicolle Ayala Internal Medicine, Encounter Date: 02/10/2025 Neurologist Referral for Maritza ropathy Please call patient to schedule an appointment. Thank you. Referring Physician: Nicolle Ayala Internal Medicine, Encounter Date: 02/10/2025 Training Program Manager Referral for Gastroesophageal reflux disease without esophagitis Please call patient to schedule an appointment. Thank you. Referring Physician: Nicolle Ayala, Internal Medicine, Encounter Date: 02/10/2025 Pain Management Referral for Chronic low back pain Pleas call patient to schedule an appointment. Thank you. Referring Physician: Nicolle Ayala, Internal Medicine, Encounter Date: 02/10/2025 Physical Therapist Referral for Chronic low back pain Please call patient to schedule an appointment. Thank you. Referring Physician: Nicolle Ayala Internal Medicine, Encounter Date: 02/10/2025 Results Created Date Observation Date Name Description Value Unit Range Abnormal Flag Note LastModifiedBy Organization Detail LastModifiedTime 10/06/20 24 10/06/2024 urina lysis , dipst ick Leukocytes (reference range: negative vega/ l) Negati ve Not Available [address], [place], [address], 10/06/2024 11:56:36 10/06/20 24 10/06/2024 urina lysis , dipst ick Nitrite (reference rage: negative mg/dl) negati ve Not Available [address], [place], [address], 10/06/2024 11:56:36 10/06/20 24 10/06/2024 urina lysis , dipst ick Urobilinogen (reference range: 0.2-1 mg/dl) 0.2 Not Available [address], [place], [address], 10/06/2024 11:56:36 10/06/20 24 10/06/2024 urina lysis , dipst ick Protein (reference range: negative mg/dl) Negati ve Not Available [address], [place], [address], 10/06/2024 11:56:36 10/06/20 24 10/06/2024 urina lysis , dipst ick pH (reference range: 5-7) 5.5 Not Available [address], [place], [address], 10/06/2024 11:56:36 10/06/20 24 10/06/2024 urina lysis , dipst ick Blood (reference range: negative Carlos/ l) Negati ve Not Available [address], [place], [address], 10/06/2024 11:56:36 10/06/20 24 10/06/2024 urina lysis , dipst ick Specific [place] (reference range: 1.005-1.030) 1.005 Not Available [address], [place], [address], 10/06/2024 11:56:36 10/06/20 24 10/06/2024 urina lysis , dipst ick Ketone (reference range: negative mg/dl) Negati ve Not Available [address], [place], [address], 10/06/2024 11:56:36 10/06/20 24 10/06/2024 urina lysis , dipst ick Bilirubin (reference range: negative mg/dl) Negati ve Not Available [address], [place], [address], 10/06/2024 11:56:36 10/06/20 24 10/06/2024 urina lysis , dipst ick Glucose (reference range: negative mg/dl) Negati ve Not Available [address], [place], [address], 10/06/2024 11:56:36 10/06/20 24 10/06/2024 urina lysis , dipst ick Appearance Clear Not Available [facility] [address], [place], [address], 10/06/2024 11:56:36 10/06/20 24 10/06/2024 urina lysis , dipst ick Color Yellow Not Available [facility] [address], [place], [address], 10/06/2024 11:56:36 02/11/20 25 02/10/2025 CBC/C OMPLE TE BLD COUNT W/DIF F white blood cells 8.1 x10'3 /uL 4.2-10 .8 Not Available [facility] (Lab) [address] [place], [address], 02/10/2025 16:42:09 02/11/20 25 02/10/2025 CBC/C OMPLE TE BLD COUNT W/DIF F red blood cells 4.04 x10'6 /uL 3.80-5 .20 Not Available [facility] (Lab) [address] [place], [address], 02/10/2025 16:42:09 02/11/20 25 02/10/2025 CBC/C OMPLE TE BLD COUNT W/DIF F hemoglobin 12.9 g/dL 12.0-1 5.6 Not Available [facility] (Lab) [address] [place], [address], 02/10/2025 16:42:09 02/11/20 25 02/10/2025 CBC/C OMPLE TE BLD COUNT W/DIF F hematocrit 38.0 % 35.7-4 5.7 Not Available [facility] (Lab) [address] [place], [address], 02/10/2025 16:42:09 02/11/20 25 02/10/2025 CBC/C OMPLE TE BLD COUNT W/DIF F mean red cell volume 94.1 fL 82.0-9 9.0 Not Available [facility] (Lab) [address] [place], [address], 02/10/2025 16:42:09 02/11/20 25 02/10/2025 CBC/C OMPLE TE BLD COUNT W/DIF F mean red cell hemoglobin 31.9 pg 27.0-3 3.0 Not Available [facility] (Lab) [address] [place], [address], 02/10/2025 16:42:09 02/11/20 25 02/10/2025 CBC/C OMPLE TE BLD COUNT W/DIF F mean RBC HGB concentratio n 33.9 g/dL 31.0-3 6.0 Not Available [facility] (Lab) [address] [place], [address], 02/10/2025 16:42:09 02/11/20 25 02/10/2025 CBC/C OMPLE TE BLD COUNT W/DIF F red cell distribution width 12.7 % 11.8-1 5.5 Not Available [facility] (Lab) [address] [place], [address], 02/10/2025 16:42:09 02/11/20 25 02/10/2025 CBC/C OMPLE TE BLD COUNT W/DIF F platelets 287 x10'3 /uL 150-40 0 Not Available [facility] (Lab) [address] [place], [address], 02/10/2025 16:42:09 02/11/20 25 02/10/2025 CBC/C OMPLE TE BLD COUNT W/DIF F mean platelet volume 10.1 fL 9.0-12 .4 Not Available [facility] (Lab) [address] [place], [address], 02/10/2025 16:42:09 02/11/20 25 02/10/2025 CBC/C OMPLE TE BLD COUNT W/DIF F neutrophils 55.5 % 39.0-7 2.0 Not Available [facility] (Lab) [address] [place], [address], 02/10/2025 16:42:09 02/11/20 25 02/10/2025 CBC/C OMPLE TE BLD COUNT W/DIF F lymphocytes 35.9 % 16.0-4 7.0 Not Available [facility] (Lab) [address] [place], [address], 02/10/2025 16:42:09 02/11/20 25 02/10/2025 CBC/C OMPLE TE BLD COUNT W/DIF F monocytes 6.7 % 5.0-12 .0 Not Available [facility] (Lab) [address] [place], [address], 02/10/2025 16:42:09 02/11/20 25 02/10/2025 CBC/C OMPLE TE BLD COUNT W/DIF F eosinophils 0.7 % 1.0-7. 0 low Not Available [facility] (Lab) [address] [place], [address], 02/10/2025 16:42:09 02/11/20 25 02/10/2025 CBC/C OMPLE TE BLD COUNT W/DIF F basophils 1.0 % 0.0-2. 0 Not Available [facility] (Lab) [address] [place], [address], 02/10/2025 16:42:09 02/11/20 25 02/10/2025 CBC/C OMPLE TE BLD COUNT W/DIF F immature granulocytes 0.2 % 0.00-0 .50 Not Available [facility] (Lab) [address] [place], [address], 02/10/2025 16:42:09 02/11/20 25 02/10/2025 CBC/C OMPLE TE BLD COUNT W/DIF F neutrophils, absolute count 4.47 x10'3 /uL 1.5-8. 0 Not Available [facility] (Lab) [address] [place], [address], 02/10/2025 16:42:09 02/11/20 25 02/10/2025 CBC/C OMPLE TE BLD COUNT W/DIF F lymphocytes, absolute count 2.90 x10'3 /uL 1.07-3 .43 Not Available [facility] (Lab) [address] [place], [address], 02/10/2025 16:42:09 02/11/20 25 02/10/2025 CBC/C OMPLE TE BLD COUNT W/DIF F monocytes, absolute count 0.54 x10'3 /uL 0.29-0 .99 Not Available [facility] (Lab) [address] [place], [address], 02/10/2025 16:42:09 02/11/20 25 02/10/2025 CBC/C OMPLE TE BLD COUNT W/DIF F eosinophils, absolute count 0.06 x10'3 /uL 0.02-0 .53 Not Available [facility] (Lab) [address] [place], [address], 02/10/2025 16:42:09 02/11/20 25 02/10/2025 CBC/C OMPLE TE BLD COUNT W/DIF F basophils, absolute count 0.08 x10'3 /uL 0.01-0 .08 Not Available [facility] (Lab) [address] [place], [address], 02/10/2025 16:42:09 02/11/20 25 02/10/2025 CBC/C OMPLE TE BLD COUNT W/DIF F immature granulocytes ,absolute 0.02 x10'3 /uL 0.00-0 .05 Not Available [facility] (Lab) [address] [place], [address], 02/10/2025 16:42:09 02/11/20 25 02/10/2025 CBC/C OMPLE TE BLD COUNT W/DIF F nucleated red blood cells 0.0 % -0 Not Available [facility] (Lab) [address] [place], [address], 02/10/2025 16:42:09 02/11/20 25 02/10/2025 CBC/C OMPLE TE BLD COUNT W/DIF F NRBC# 0.00 x10'3 /uL Not Available [facility] (Lab) [address] [place], [address], 02/10/2025 16:42:09 02/11/20 25 02/10/2025 LIPID PANEL cholesterol 192 mg/dL 140-19 9 NIH MELISA NSUS RECOM MENDA TION FOR ARNIE STERO L: ADULT CHILD LOW RISK: <200 <170 BORDE RLINE : <200- 239 ----- HIGH RISK: >240 >200 Not Available [facility] (Lab) [address] [place], [address], 02/10/2025 17:07:59 02/11/2002/10/2025 LIPID PANEL triglyceride s 212 mg/dL 0-150 high NIH MELISA NSUS REPOR T RECOM MENDA TION FOR TRIGL YCERI GUANAKO: ADULT CHILD LOW RISK: <150 ----- BODER LINE: 150-1 99 ----- HIGH RISK: >200 ----- Not Available [facility] (Lab) [address] [place], [address], 02/10/2025 17:07:59 02/11/2002/10/2025 LIPID PANEL HDL cholesterol 43 mg/dL 40- Not Available [facility] (Lab) [address] [place], [address], 02/10/2025 17:07:59 02/11/20 25 02/10/2025 LIPID PANEL LDL cholesterol, calculated 107 mg/dL 0-130 NIH MELISA NSUS REPOR T RECOM MENDA TIONS FOR LDL: ADULT CHILD LOW RISK <130 <110 (OPTI MAL LDL) <100 ----- BORDE RLINE : 130-1 59 ----- HIGH RISK: >160 >130 A TRIGL YCERI DE RESUL T >400 INVAL IDATE S THE CALCU LATIO N FOR LDL FRACT IONAT ION - THE LDL RESUL T WILL NOT BE REPOR AGUILA. Not Available [facility] (Lab) [address] [place], [address], 02/10/2025 17:07:59 02/11/20 25 02/10/2025 COMPR EHENS DARA METAB OLIC PANEL sodium 136 mmol/ L 137-14 5 low Not Available [facility] (Lab) [address] [place], [address], 02/10/2025 17:08:05 02/11/20 25 02/10/2025 COMPR EHENS DARA METAB OLIC PANEL potassium 4.1 mmol/ L 3.5-5. 1 Not Available [facility] (Lab) [address] [place], [address], 02/10/2025 17:08:05 02/11/20 25 02/10/2025 COMPR EHENS DARA METAB OLIC PANEL chloride 103 mmol/ L 98-107 Not Available [facility] (Lab) [address] [place], [address], 02/10/2025 17:08:05 02/11/20 25 02/10/2025 COMPR EHENS DARA METAB OLIC PANEL carbon dioxide 24 mmol/ L 22-30 Not Available [facility] (Lab) [address] [place], [address], 02/10/2025 17:08:05 02/11/20 25 02/10/2025 COMPR EHENS DARA METAB OLIC PANEL anion gap 13.1 mmol/ L 14-22 low Not Available [facility] (Lab) [address] [place], [address], 02/10/2025 17:08:05 02/11/20 25 02/10/2025 COMPR EHENS DARA METAB OLIC PANEL glucose 113 mg/dL 70-99 high Not Available [facility] (Lab) [address] [place], [address], 02/10/2025 17:08:05 02/11/20 25 02/10/2025 COMPR EHENS DARA METAB OLIC PANEL BUN 10 mg/dL 8-19 Not Available [facility] (Lab) [address] [place], [address], 02/10/2025 17:08:05 02/11/20 25 02/10/2025 COMPR EHENS DARA METAB OLIC PANEL creatinine 0.68 mg/dL 0.66-1 .25 Not Available [facility] (Lab) [address] [place], [address], 02/10/2025 17:08:05 02/11/20 25 02/10/2025 COMPR EHENS DARA METAB OLIC PANEL GFR >60 Refer ence Range : [place] ge GFR Healt hy Adult : >60 mL/mi n/1.7 3 m2 Chron ic Kidne y Disea se: 15-60 mL/mi n/1.7 3 m2 Kidne y Failu re: <15/m L/min /1.73 m2 www.n iddk. nih.g ov The MDRD study equat ion has not been valid ated in child tiffany <18 years of age; pregn ant women ; the elder ly >85 years of age; or in some racia l or ethni c subgr oups, such as Hispa nics. Outsi de the valid ated jay eters , estim ated GFR is less accur ate, requi ring clini antony judgm ent on a case- by-ca se basis . Clini antony inter preta tion for other races and ages must be made by the clini melchor. The MDRD study equat ion has not been valid ated for the evalu ation of serum creat inine relat ed to nutri alisha l statu s or medic ation usage . For perso ns <18 years of age, a pedia tric GFR calcu lator is avail able on the [facility] websi te: https ://alisson correa.o ngoc/pr ofess ional s/kdo qi/gf r_cal culat or Not Available [facility] (Lab) [address] [place], [address], 02/10/2025 17:08:05 02/11/20 25 02/10/2025 COMPR EHENS DARA METAB OLIC PANEL alkaline phosphatase 106 U/L 38-126 Not Available [facility] (Lab) [address] [place], [address], 02/10/2025 17:08:05 02/11/20 25 02/10/2025 COMPR EHENS DARA METAB OLIC PANEL alanine aminotransfe rase 43 U/L 0-35 high Not Available [facility] (Lab) [address] [place], [address], 02/10/2025 17:08:05 02/11/20 25 02/10/2025 COMPR EHENS DARA METAB OLIC PANEL aspartate aminotransfe rase 62 U/L 15-37 high Not Available [facility] (Lab) [address] [place], [address], 02/10/2025 17:08:05 02/11/20 25 02/10/2025 COMPR EHENS DARA METAB OLIC PANEL bilirubin, total 0.40 mg/dL 0.20-1 .30 Not Available [facility] (Lab) [address] [place], [address], 02/10/2025 17:08:05 02/11/20 25 02/10/2025 COMPR EHENS DARA METAB OLIC PANEL calcium 9.7 mg/dL 8.4-10 .2 Not Available [facility] (Lab) [address] [place], [address], 02/10/2025 17:08:05 02/11/20 25 02/10/2025 COMPR EHENS DARA METAB OLIC PANEL total protein 7.6 g/dL 6.3-8. 2 Not Available [facility] (Lab) [address] [place], [address], 02/10/2025 17:08:05 02/11/20 25 02/10/2025 COMPR EHENS DARA METAB OLIC PANEL albumin 4.7 g/dL 3.4-5. 0 Not Available [facility] (Lab) [address] [place], [address], 02/10/2025 17:08:05 02/11/20 25 02/10/2025 COMPR EHENS DARA METAB OLIC PANEL globulin 2.9 g/dL 2.6-4. 2 Not Available [facility] (Lab) [address] [place], [address], 02/10/2025 17:08:05 02/11/20 25 02/10/2025 COMPR EHENS DARA METAB OLIC PANEL A/G ratio 1.6 ratio 1.0-2. 0 Not Available [facility] (Lab) [address] [place], [address], 02/10/2025 17:08:05 02/11/20 25 02/10/2025 MICRO ALBUM IN RANDO M URINE microalbumin , urine 46.2 mg/L 0.0-16 .6 high Not Available [facility] (Lab) [address] [place], [address], 02/10/2025 17:18:50 02/11/20 25 02/10/2025 TSH W/REF YOSSI FT4 TSH with reflex free T4 0.575 uIU/m L 0.465- 4.680 Not Available [facility] (Lab) [address] [place], [address], 02/10/2025 17:41:02 02/11/20 25 02/10/2025 HEMOG LOBIN A1C HA1C 5.5 % 4.0-6. 0 Diabe georgi Marke jodie Crite argelia: <5.7% Consi stent with absen ce of diabe georgi 5.7-6 .4% Consi stent with incre ased risk for diabe georgi (pred iabet es) >OR=6 .5% Consi stent with diabe georgi REFER ENCE: Diabe georgi Care 2016, 39( ppl.1 ):s13 -s22 Not Available [facility] (Lab) [address] [place], [address], 02/10/2025 20:27:55 11/13/19 25 11/13/2024 XR, cervi antony spine , 2 or 3 view No observ ation record ed. [email or web address] [facility] ([facility]) [address] [place], [address], 12/17/2024 09:39:04 11/13/19 25 11/13/2024 XR, thora cic spine , 3 view No observ ation record ed. [email or web address] [facility] ([facility]) [address] [place], [address], 11/17/2024 13:54:13 11/13/19 25 11/13/2024 XR, lumbo sacra l spine , 4 or more view No observ ation record ed. [facility] [address] [place], [address], 11/17/2024 09:55:11 02/20/20 25 02/19/2025 US, abdom en, limit ed [facility] [address] [place] [address] [phone] Patien t Name: CLARENCE AyersHEVER L Access ion #: [id number] Sex: F : 1985 5 Locati on: RAD Attend ing Physic familia: BAKARI GONZALEZ Orderi ng Physic familia: BAKARI GONZALEZ Exam Date: 9:23 AM Exam Name: US ABDOME N SINGLE ORGAN Admitt ing Diagno sis(es ): RADIOL OGY REPORT - FINAL EXAM: US ABDOME N SINGLE ORGAN HISTOR Y: abnorm al liver enzyme s 39-yea r-old female with abnorm al LFTs. COMPAR GLENN: CT scan of the abdome n and pelvis dated 2021 TECHNI QUE: Right upper quadra nt ultras ound was perfor med. FINDIN GS: The gallbl adder is surgic ally absent . No intrah epatic biliar y ductal dilata tion or liver mass. The liver measur es 17.3 cm longit udinal . The liver is somewh at echoge shweta and diffic ult to penetr ate sonogr aphica lly. There is hepato petal portal venous color Dopple r flow. The common duct measur es 5.6 mm in diamet er. The pancre as is not visual ized sonogr aphica lly, possib ly due to overly ing bowel gas. The intrah epatic portio n of the IVC is Page 1 of 2 [facility] Name: HEVER LIM Access ion #: [id number] Sex: F : 1985 3 Exam Date: 9:23 AM Exam Name: US ABDOME N SINGLE ORGAN Admitt ing Diagno sis(es ): patent . No upper abdomi nal aortic ectasi a. The right kidney measur es 9.4 cm in length and is normal in appear ance. IMPRES KOBE: 1. Postop erativ e change s of cholec ystect javad. 2. Probab le hepati c steato sis. Create d and electr onical ly signed by: Renzo pearson MD Signed Date: 3:15 PM (CT) Dictat ed by: Renzo pearson MD DD: 5/15/2 025 3:15 PM (CT) DT: 025 3:15 PM (CT) Page 2 of 2 [email or web address] [facility] (Imaging) [address] [place], [address], 03/05/2025 15:44:13 02/20/20 25 02/19/2025 US, liver No observ ation record ed. [facility] [address] [place], [address], 02/19/2025 16:20:31 02/20/20 25 02/19/2025 imagi ng/di agnos tic resul t No observ ation record ed. [email or web address] [facility] [address] [place], [address], 02/23/2025 11:25:04 Result Notes None recorded. Problems Name Problem SNOMED Code Status Onset Date Resolution Date Notes Provider Name and Address Organization Details Recorded Time Chronic abdominal pain 804735928 Active 2021 Mary Perez APRN [address] [facility], [address], [place], [address] , [employer] 5 13:18:33 Disorder of shoulder 720069886 Active Not Available [facility] 3 13:13:22 Cervical spondylosi s with radiculopa thy Active Mary Perez APRN [address] [facility], [address], [place], [address] , [employer] 5 13:18:30 Abdominal pain 99634527 Active 2022 Not Available [facility] 3 13:13:22 Speech and language disorder 554516696 Active 2021 Nicolle saenz MD [address], [address], [place], [address] , [employer] 5 15:34:08 Gastroesop hageal reflux disease without esophagiti s 076203111 Active 2022 Mary Perez APRN [address], [address], [place], [address] , [employer] [facility] 5 13:18:45 Shoulder joint pain 877171247 Active Not Available [facility] 3 13:13:22 Closed fracture of lateral malleolus 41606350 Active Not Available [facility] 3 13:13:22 Fracture of lower leg 082365177 Active Not Available [facility] 3 13:13:22 Pain of shoulder region 93999664 Active 2018 Not Available [facility] 3 13:13:22 Mood disorder 48855763 Active 2021 Mary Perez APRN [address], [address], [place], [address] , [employer] [facility] 5 13:18:54 Neck pain 64293549 Active 2018 Not Available [facility] 3 13:13:23 Spinal stenosis in cervical region 27825071 Active Not Available [facility] 3 13:13:23 Postcholec ystectomy syndrome 50498729 Active 2022 Not Available [facility] 3 13:13:23 Nondiabeti c gastropare sis 37814529 Active 2022 Natasha Gooden MD [address], [address], [place], [address] , [employer] [facility] 3 12:50:35 Chronic neck pain 2100002561213 Active 2022 Mary Perez APRN [address], [address], [place], [address] , [employer] [facility] 5 14:53:24 Thoracic back pain 386128381 Active 2022 BELL Pagan [address], [address], [place], [address] , [employer] [place] [facility] 3 11:04:07 Low back pain 899182359 Active 2022 BELL Pagan [address], [address], [place], [address] , [facility] 3 11:04:31 Generalize d aches and pains 51576634 Active 2022 BELL Pagan [address], [address], [place], [address] , [place] [facility] 3 11:09:40 Pain of right shoulder joint 0457693998725 9100 Active 2022 BELL Pagan [address], [address], [place], [address] , [facility] 3 12:00:05 Increased frequency of urination 605915817 Active 2022 BELL Pagan [address], [address], [place], [address] , [facility] 3 12:03:42 Dysuria 57980220 Active [address], [address], [place], [address] , [facility] 3 12:01:06 Acute urinary tract infection 696307493 Active 2023 WALTER Marr [facility], [place] - [facility] 5 14:53:21 Pain of left shoulder joint 0157132829228 9109 Active 2023 LETY Dao [address], [address], [place], [address] , [facility] 4 11:11:56 Degenerati on of lumbar interverte bral disc 75887256 Active 2023 Mary Perez APRN [address], [address], [place], [address] , [facility] 5 13:18:38 Cyclical vomiting syndrome 24071000 Active 2023 Mary Perez APRN [address], [address], [place], [address] , [place] [facility] 5 14:53:33 Vitamin D deficiency 78044462 Active 2024 Mary Perez APRN [address], [address], [place], [address] , [place] [facility] 5 14:53:47 Type 2 diabetes mellitus 73889024 Active 2024 Nicolle saenz MD [address], [address], [place], [address] , [place] [facility] 5 15:28:48 Hypertrigl yceridemia 660299214 Active 2024 Mary Perez APRN [address], [address], [place], [address] , [place] [facility] 5 08:25:14 Prolapsed lumbar interverte bral disc 943272071 Active 2024 Mary Perez APRN [address], [address], [place], [address] , [place] [facility] 5 11:40:16 Peripheral nerve disease 046663285 Active 2024 Mary Perez APRN [address], [address], [place], [address] , [place] [facility] 5 11:40:28 Recurrent falls 442103385 Active 2024 Mary Perez APRN [address], [address], [place], [address] , [place] [facility] 5 11:40:36 Acute sinusitis 37986332 Active 2024 Mary Perez APRN [address], [address], [place], [address] , [place] [facility] 5 15:36:09 Type 2 diabetes mellitus without complicati on 598349777 Active 2024 Nicolle saenz MD [address], [address], [place], [address] , [place] [facility] 18:30:59 Neuropathy 100477808 Active 2024 Nicolle saenz MD [address], [address], [place], [address] , [place] [facility] 18:31:33 Moderate recurrent major depression 64535503 Active 2024 Nicolle saenz MD [address], [address], [place], [address] , [place] [facility] 18:32:38 Hyperlipid emia 33342845 Active 2024 Nicolle saenz MD [address], [address], [place], [address] , [place] [facility] 15:02:58 Depressive disorder 81082969 Active 2024 Nicolle saenz MD [address], [address], [place], [address] , [place] [facility] 5 12:42:49 Serum vitamin B12 below reference range 931091806 Active 2024 Nicolle saenz MD [address], [address], [place], [address] , [place] [facility] 5 12:45:20 Chronic low back pain 250001895 Active 2024 Nicolle saenz MD [address], [address], [place], [address] , [place] [facility] 15:18:36 Irritable bowel syndrome 80033545 Active 2024 Nicolle saenz MD [address], [address], [place], [address] , [place] [facility] 5 15:23:36 Mixed hyperlipid emia 997237566 Active 2024 WALTER Marr null, [place] [facility] 5 14:33:13 Liver enzymes outside reference range 083113804 Active 2024 Emilia Quintana RMPraveen null, [place] [facility] 5 14:34:15 Abnormal liver function 09096388 Active 2024 WALTER Marr null, [facility] 5 14:35:17 Proteinuri a 46556031 Active 2024 WALTER Marr null, [facility] 5 14:36:17 Steatotic liver disease 460011699 Active 2024 WALTER Marr, [facility] 11:17:35 Problem Notes None recorded. Procedures Surgical History Date Name Laterality Status Provider Name and Address Organization Details Recorded Time 11/13/19 25 Medicare Wellness CPT Code, subsequent completed Mary Perez APRN [address], [address], [place], [address], [facility] [employer] [facility] 11/13/2024 11:30:51 cholecystectomy completed WALTER Marr [facility] 02/10/2025 14:55:28 Imaging Results None recorded. Procedure Notes None recorded. Medical Equipment None Reported. Allergies Allergen ID Allergen Name Allergen Category Reaction Reaction Severity Criticality Documentation Date Start Date Code Code System Note Provider Name and Address Organization Details Recorded Time 99106 No known allergy (situatio n) Not available Not available Not available Not available 10/12/2024 [id number] SNOMED Mary Perez APRN [address], [address], [place], [address], [facility] [employer] [facility] 13:17:37 No known drug allergies Medications Name Sig Start Date Stop Date Status Note LastModified by Organization Details LastModified Time cyclobenzap rine 10 mg tablet TAKE 1 TABLET BY MOUTH THREE TIMES DAILY active Not Available Not Available No t Available amoxicillin 500 mg capsule 05/02 completed Not Available Not Available Not Available atorvastati n 40 mg tablet TAKE 1 TABLET BY MOUTH EVERY DAY active Not Available Not Available No t Available gabapentin 600 mg tablet TAKE 1 TABLET BY MOUTH THREE TIMES DAILY active Not Available Not Available No t Available nicotine 14 mg/24 hr daily transdermal patch Apply 1 patch every day by transderm al route. 04/02 completed Not Available Not Available Not Available azithromyci n 250 mg tablet TAKE 2 TABLETS (500 MG) BY ORAL ROUTE ONCE DAILY FOR 1 DAY THEN 1 TABLET (250 MG) BY ORAL ROUTE ONCE DAILY FOR 4 DAYS 12/10 completed Not Available Not Available Not Available ibuprofen 800 mg tablet TAKE 1 TABLET BY MOUTH THREE TIMES DAILY NEEDED active Not Available Not Available No t Available cephalexin 250 mg capsule 05/02 completed Not Available Not Available Not Available hydrocodone 5 mg-acetamin ophen 325 mg tablet 05/02 completed Not Available Not Available Not Available ondansetron HCl 8 mg tablet 05/02 completed Not Available Not Available Not Available sucralfate 1 gram tablet Take 1 tablet twice a day by oral route with meals for 90 days. active Not Available Not Available No t Available ondansetron HCl 4 mg tablet 04/12 completed Not Available Not Available Not Available famotidine 40 mg tablet TAKE 1 TABLET BY MOUTH EVERY DAY AT BEDTIME FOR GERD active Not Available Not Available No t Available prednisone 20 mg tablet 3 po qday x 3 days then 2 po qday x 3 days then 1 po qday x 3 days then 1/2 tab po qday x 3 days then stop 04/02 completed Not Available Not Available Not Available gabapentin 400 mg capsule TAKE 1 CAPSULE BY MOUTH THREE TIMES DAILY 11/29 completed Not Available Not Available Not Available permethrin 5 % topical cream 05/02 completed Not Available Not Available Not Available metronidazo le 500 mg tablet 04/12 completed Not Available Not Available Not Available ciprofloxac in 250 mg tablet 04/01 completed Not Available Not Available Not Available ciprofloxac in 500 mg tablet Take 1 tablet twice a day by oral route for 7 days. 2024 active Not Available Not Available Not Avai lable sulfamethox azole 800 mg-trimetho prim 160 mg tablet TAKE 1 TABLET BY MOUTH EVERY 12 HOURS FOR 7 DAYS active Not Available Not Available No t Available tramadol 50 mg tablet Take 1 tablet every day by oral route as needed. 07/28 completed Not Available Not Available Not Available acetaminoph en 500 mg tablet TAKE 1 TABLET BY MOUTH EVERY 8 HOURS FOR 10 DAYS 02/10 completed Not Available Not Available Not Available ketorolac 30 mg/mL (1 mL) injection solution Inject 2 mL every 6 hours by intramusc ular route. 02/10 completed Not Available Not Available Not Available amoxicillin 500 mg tablet 04/02 completed Not Available Not Available Not Available propranolol 10 mg tablet TAKE 1 TABLET BY MOUTH THREE TIMES DAILY NEEDED FOR ANXIETY active Not Available Not Available No t Available famotidine 20 mg tablet 11/05 completed Not Available Not Available Not Available amitriptyli ne 25 mg tablet TAKE 1 TABLET BY MOUTH EVERY NIGHT active Not Available Not Available No t Available dicyclomine 20 mg tablet TAKE 1 TABLET BY MOUTH THREE TIMES DAILY NEEDED active Not Available Not Available No t Available OneTouch Ultra Test strips Take 1 strip twice a day by miscell. route before meal(s). active Not Available Not Available No t Available gemfibrozil 600 mg tablet TAKE 1 TABLET BY MOUTH TWICE DAILY DIRECTED active Not Available Not Available No t Available hydrocodone 7.5 mg-acetamin ophen 325 mg tablet 03/16 completed Not Available Not Available Not Available pantoprazol e 40 mg tablet,aissatou yed release TAKE 1 TABLET BY MOUTH ONCE DAILY BEFORE MEAL FOR GERD 2024 active Not Available Not Available Not Avai lable esomeprazol e magnesium 40 mg capsule,del ayed release 03/16 completed Not Available Not Available Not Available nitrofurant oin macrocrysta l 100 mg capsule Take 1 capsule twice a day by oral route for 7 days. 04/02 completed Not Available Not Available Not Available hyoscyamine 0.[address] 1 mg every 4-6 hours by sublingua l route as needed for 30 days. 04/02 completed Not Available Not Available Not Available bupropion HCl 75 mg tablet TAKE 1 TABLET BY MOUTH EVERY DAY active Not Available Not Available No t Available gabapentin 300 mg capsule TAKE 1 CAPSULE BY MOUTH THREE TIMES DAILY 07/28 completed Not Available Not Available Not Available mupirocin 2 % topical ointment 02/10 completed Not Available Not Available Not Available gabapentin 100 mg capsule 05/02 completed Not Available Not Available Not Available ibuprofen 600 mg tablet 12/21 completed Not Available Not Available Not Available levofloxaci n 500 mg tablet 04/12 completed Not Available Not Available Not Available methylpredn isolone 4 mg tablets in a dose pack 09/28 completed Not Available Not Available Not Available ketorolac 60 mg/2 mL intramuscul ar solution Inject 1 mL every 6 hours by intramusc ular route. active Not Available Not Available No t Available metformin ER 500 mg tablet,exte nded release 24 hr TAKE 1 TABLET BY MOUTH EVERY DAY DIRECTED FOR DIABETES active Not Available Not Available No t Available lisinopril 2.5 mg tablet TAKE 1 TABLET BY MOUTH EVERY DAY active Not Available Not Available No t Available colestipol 1 gram tablet TAKE 2 TABLETS BY MOUTH EVERY DAY IN THE MORNING active Not Available Not Available No t Available dicyclomine 10 mg capsule 05/02 completed Not Available Not Available Not Available naproxen 500 mg tablet 10/20 completed Not Available Not Available Not Available metoclopram jillian 10 mg tablet TAKE 1 TABLET BY MOUTH THREE TIMES DAILY NEEDED active Not Available Not Available No t Available escitalopra m 10 mg tablet 03/16 completed Not Available Not Available Not Available cyclobenzap rine 5 mg tablet 03/16 completed Not Available Not Available Not Available Alcohol Prep Pads Apply 1 pad 3 times a day by topical route as directed, for for blood sugar check. 2024 active Not Available Not Available Not Avai lable nitrofurant oin monohydrate /macrocryst als 100 mg capsule Take 1 capsule every 12 hours by oral route for 7 days. 04/02 completed Not Available Not Available Not Available duloxetine 20 mg capsule,del ayed release TAKE 1 CAPSULE BY MOUTH DAILY WITH 60 MG DOSE( TOTAL DOSE 80 MG DAILY) active Not Available Not Available No t Available duloxetine 30 mg capsule,del ayed release 05/02 completed Not Available Not Available Not Available duloxetine 60 mg capsule,del ayed release TAKE 1 CAPSULE BY MOUTH DAILY active Not Available Not Available No t Available OneTouch UltraSoft Lancets active Not Available Not Available Not Available Lyrica 50 mg capsule 05/02 completed Not Available Not Available Not Available Lyrica 100 mg capsule 04/12 completed Not Available Not Available Not Available Centrum 2019 active Not Available Not Available Not Avai lable Narcan 4 mg/actuatio n nasal spray 10/20 completed Not Available Not Available Not Available OneTouch Ultra2 Meter active Not Available Not Available Not Available OneTouch Delica Plus Lancet 30 gauge active Not Available Not Available Not Available Vitals Date Recorded Body height Body mass index (BMI) Body weight Body temperature Heart rate Oxygen saturation Oxygen saturation in Arterial blood by Pulse oximetry Systolic blood pressure Diastolic blood pressure Provider Name and Address Organization Details Last Updated DateTime 5 160.02 cm 34.7 kg/m2 29122.1 g 99.1 [degF] 95 /min 96 % 96 % 112 mm[Hg] 74 mm[Hg] Kellen Medley MA [employer] 5 14:42:20 Date Recorded Body height Body mass index (BMI) Body weight Body temperature Heart rate Oxygen saturation Oxygen saturation in Arterial blood by Pulse oximetry Systolic blood pressure Diastolic blood pressure Provider Name and Address Organization Details Last Updated DateTime 5 160.02 cm 35.6 kg/m2 82938.0 7 g 97.6 [degF] 85 /min 99 % 99 % 124 mm[Hg] 82 mm[Hg] Kellen Medley MA [employer] [employer] 5 11:17:13 Date Recorded Body height Body mass index (BMI) Body weight Body temperature Heart rate Systolic blood pressure Diastolic blood pressure Provider Name and Address Organization Details Last Updated DateTime 5 160.02 cm 34.5 kg/m2 76378.5 1 g 97.2 [degF] 84 /min 132 mm[Hg] 82 mm[Hg] WALTER Marr [facility] [employer] 5 14:58:18 Date Recorded Body height Body mass index (BMI) Body weight Body temperature Heart rate Oxygen saturation Oxygen saturation in Arterial blood by Pulse oximetry Systolic blood pressure Diastolic blood pressure Provider Name and Address Organization Details Last Updated DateTime 4 160.02 cm 34.7 kg/m2 05477.1 g 98.2 [degF] 102 /min 96 % 96 % 150 mm[Hg] 98 mm[Hg] Joyce Ponce RN [facility] [employer] 10:39:19 Date Recorded Body height Provider Name an d Address Organization Details Last Updated DateTime 10/06/2024 160.02 cm Isabella Reyna RN [facility] [employer] 10/06/2024 12:53:09 Social History Question Answer Notes LastModified by Organizat ion Details LastModified Time Tobacco Smoking Status Former Smoker CARLEE Arthur, [facility] [employer] 11/05/2024 14:45:41 Do You Have An Advance Directive? No [id number] Information not available 12/06/2022 What Is Your Level Of Caffeine Consumption? Occasional [id number] Information not available 12/06/2022 In The 14 Days Before Symptom Onset, Have You Had Close Contact With A Laboratory-confi rmed COVID-19 While That Case Was Ill? No Information not available 10/12/2023 In The 14 Days Before Symptom Onset, Have You Had Close Contact With A Person Who Is Under Investigation For COVID-19 While That Person Was Ill? No Information not available 10/12/2023 What Type Of Diet Are You Following? REGULAR [id number] Information not available 12/06/2022 Which Illicit Or Recreational Drugs Have You Used? [place] Information not available 10/12/2023 Have There Been Any Changes To Your Family Or Social Situation? No Information not available 11/05/2024 When Did You Quit Smoking? 1-5yearssincelastci matthew Information not available 11/05/2024 Do You Use Insect Repellent Routinely? No Information not available 11/05/2024 Where Do You Live? SingleLevelHouse Information not available 11/05/2024 Do You Have A Medical Power Of Casing Blower? No Information not available 10/12/2023 What Was The Date Of Your Most Recent Tobacco Screening? 11/13/2024 Information not available 11/13/2024 Do You Have Any Pets? Yes Information not available 11/05/2024 What Is Your Relationship Status? Domestic Partner Information not available 11/05/2024 Do You Use Your Seat Belt Or Car Seat Routinely? Yes Information not available 11/05/2024 Do You Have Smoke And Carbon Monoxide Detectors In Your Home? Yes Information not available 11/05/2024 Are You Passively Exposed To Smoke? No Information not available 11/05/2024 Are There Any Smokers In Your House? No Information not available 11/05/2024 How Much Tobacco Do You Smoke? 0.5 PPD [id number] Information not available 12/06/2022 Do You Use Sunscreen Routinely? No Information not available 11/05/2024 Has Tobacco Cessation Counseling Been Provided? No Information not available 10/12/2023 Have You Recently Traveled Abroad? No Information not available 10/12/2023 Have You Used IV Drugs? No Information not available 10/12/2023 Do You Have Any Dietary Restrictions? No Information not available 10/12/2023 Sex: Unknown Functional Status Question Answer Note LastModified by Organizat ion Details LastModified Time Do you use any illicit or recreational drugs? Yes weed for her pain Information not available 10/12/2023 Do you or have you ever used any other forms of tobacco or nicotine? No Information not available 10/12/2023 What is your level of alcohol consumption? None [id number] Information not available 12/06/2022 Are you currently employed? No Information not available 11/05/2024 What is your exercise level? None [id number] Information not available 12/06/2022 Mental Status Question Answer Note LastModified by Organization D etails LastModified Time Do you feel stressed (tense, restless, nervous, or anxious, or unable to sleep at night)? [id number] Information not available 11/05/2024 Family History Relationship Description Onset Age of this Age Resolved Age Notes LastModified by Organization Details LastModified Time Paternal Uncle Diabetes mellitus [id number] Not available 12/06/2022 13:12:34 Mother Family history of malignant neoplasm frivastorres Not available 14:35:58 Medical History Condition Response GI PROBLEMS Y Gynecological History Statement/Question Response How many live births 1 Date of LMP 12/28/2022 Obstetrics History GPAL:G 1 P 1 0 0 1 Type Value Multiple Births 0 Full Term 1 Induced 0 Spontaneous 0 Premature 0 Living 1 Ectopics 0 Total 1 Past Encounters Encounter ID Performer Location Encounter Start Date Encounter Closed Date Diagnosis/Indication Diagnosis SNOMED-CT Code Diagnosis ICD10 Code Diagnosis Note [id number] BELL Pagan [facility] [place] [address] [place] [address] 03/16/2022 00:00:00 03/16/2022 16:57:19 [id number] BELL Pagan [facility] [place] [address] [place] [address] 04/18/2022 00:00:00 04/18/2022 17:59:52 [id number] BELL Pagan [facility] [place] [address] [place] [address] 05/23/2022 00:00:00 05/23/2022 20:20:32 [id number] Naomi Rosa MD [facility] [facility] [place] [address] [place] [address] 07/25/2022 00:00:00 07/25/2022 13:19:27 [id number] Naomi Rosa MD [facility] [place] [address] [place] [address] 09/21/2022 00:00:00 09/21/2022 13:27:08 [id number] Naomi Rosa MD [facility] [place] [address] [place] [address] 10/27/2022 00:00:00 10/27/2022 18:04:15 [id number] Natasha Gooden MD [facility] General Surgery [address] [place] [address] [address] [place] [address] 11/08/2022 00:00:00 11/08/2022 13:01:18 [id number] Naomi Rosa MD [facility] Primary Care [facility] [address] [facility] [address] [place] [address] 11/10/2022 00:00:00 11/10/2022 22:03:26 [id number] Natasha Gooden MD [facility] General Surgery [address] [place] [address] 01/10/2023 12:32:26 02/02/2023 11:18:48 Nondiabetic gastroparesis 69640124 K31.84 Gastroesop hageal reflux disease without esophagitis 098693168 K21.9 [id number] BELL Pagan [facility] Primary Care [facility] [address] [facility] [address] [place] [address] 01/11/2023 10:40:18 01/11/2023 11:53:13 Chronic neck pain [id number] 107 M54.2 ChronicGoo d neck mechanics, posture, modalities reviewed with patient. Heat 10-15 minutes 3 times a day, then neck stretches as tolerated not beyond pain. Neck support/pi llow at bedtime. No lifting or straining until symptoms resolve. Return to clinic if no improve for further testing. Go to ED for sudden onset of neurologic symptoms or incontinen ce. Continue with otc pain relievers per package zion ns. Will give Toradol injection in office today. Sent for xray of cspine Thoracic back pain 36894 8004 M54.6 Daily good back mechanics reviewed with patient, good posture, avoid prolonged sitting or standing, stretches given and reviewed with patient. Heat 10-15 minutes 3 times daily as needed for pain or spasms. Go to ED for neurologic symptoms or incontinen ce.Sent for xray thoracic spine and starting muscle relaxer Low back pain 648073478 M54.50 Daily good back mechanics reviewed with patient, good posture, avoid prolonged sitting or standing, stretches given and reviewed with patient. Heat 10-15 minutes 3 times daily as needed for pain or spasms. Go to ED for neurologic symptoms or incontinen ce.Ok to increase gabapentin to 300mg-2 caps TID PRN Mood disorder 04756426 F 37 Generalize d aches and pains 95672041 R52 [id number] BELL Pagan [facility] [place] [facility] Primary Care Antonio gaytan [address] [facility] [address] [place] [address] 02/14/2023 11:43:29 02/14/2023 12:12:32 Pain of right shoulder joint [id number] 2165902 M25.511 New problemPt denies any fall/injur y to right shoulder.P t reports xray from ER last week wnl.States no improvemen t with otc pain relievers. Will referral to PT and start on PO steroids. Chronic neck pain 090237 0135 107 M54.2 ChronicGoo d neck mechanics, posture, modalities reviewed with patient. Heat 10-15 minutes 3 times a day, then neck stretches as tolerated not beyond pain. Neck support/pi llow at bedtime. No lifting or straining until symptoms resolve. Return to clinic if no improve for further testing. Go to ED for sudden onset of neurologic symptoms or incontinen ce. Continue with otc pain relievers per package instructio ns. Steroids for shoulder should also help with pain. Will give Toradol injection in office today. Sent for xray of cspine, pt encouraged to complete imaging. Thoracic back pain 79721 8004 M54.6 Daily good back mechanics reviewed with patient, good posture, avoid prolonged sitting or standing, stretches given and reviewed with patient. Heat 10-15 minutes 3 times daily as needed for pain or spasms. Go to ED for neurologic symptoms or incontinen ce.Encoura ged pt to complete xray thoracic spine. Continue muscle relaxer as directed. Steroids for shoulder should also help with pain. Low back pain 341859910 M54.50 Daily good back mechanics reviewed with patient, good posture, avoid prolonged sitting or standing, stretches given and reviewed with patient. Heat 10-15 minutes 3 times daily as needed for pain or spasms. Go to ED for neurologic symptoms or incontinen ce. Steroids for shoulder should also help with pain.Julia nue gabapentin 300mg-2 caps TID PRN Increased frequency of urination 988207549 R35.0 New problemUri ne dip in office today/UA sent, reflex culture. Will start on PO abx pending urine results. Advised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
[2025-03-07 20:28] VITALS: BP 138/84; PULSE 101; RESP 18; TEMP 36.3; O2SAT 99
[2025-03-07 23:38] VITALS: BP 152/97; PULSE 100; RESP 16; O2SAT 98
[2025-03-07 23:42] LABS: BEDSIDEPREGUCG Negative (Negative)
[2025-03-07 23:45] LABS: Hematocrit 38.9 % (37.0-47.0); Hemoglobin 13.2 g/dL (12.0-15.0); Mean Corpuscular HGB Conc 33.9 g/dl (32-36); Mean Corpuscular Hemoglobin 31.1 pg (26-34); Mean Corpuscular Volume 91.7 fl (80-100); Mean Platelet Volume 9.7 fl (7.4-10.4); Platelet Count Result 276 k/mm3 (150-375); Red Blood Count 4.24 M/mm3 (4.2-5.4); Red Cell Distribution Width 12.4 % (11.5-14.5); White Blood Count 13.9 K/mm3 (4.5-10.0)
[2025-03-07 23:46] LABS: Add Urine Microscopic? NO; Appearance Urine Clear (Clear); Bilirubin Urine Negative (Negative); Blood Urine Negative (Negative); Color Urine Yellow (Yellow); Glucose Urine UA Negative (Negative); Ketones Urine Negative (Negative); Leukocyte Esterase Ur Negative LEU/UL (Negative); Nitrate Urine Negative (Negative); Protein Urine Negative (Negative); Specific Grav Ur 1.007 (1.001-1.035); Urobilinogen Urine 0.2 mg/dL (<2.0)
[2025-03-08 00:07] LABS: Alanine Aminotransferase 38 U/L (6-35); Albumin Level 4.7 g/dL (3.5-5.1); Alkaline Phosphatase 92 U/L (38-126); Anion Gap 12 mmol/L (4-12); Aspartate Amino Transferase 46 U/L (14-36); Bilirubin,Total 0.3 mg/dL (0.2-1.3); Blood Urea Nitrogen 12 mg/dL (7-17); Calcium 9.8 mg/dL (8.4-10.2); Carbon Dioxide 25 mmol/L (22-30); Chloride 102 mmol/L (98-107); Estimated CRCL calculation 107 ml/min; Estimated Glomerular Filt Rate > 60; Glucose 148 mg/dL (65-110); Lipase 102 U/L (23-300); Potassium 3.8 mmol/L (3.4-5.0); Sodium 139 mmol/L (137-145)
[2025-03-08 00:16] LABS: Band Neutrophils Percent 1 % (0-6); Eosinophils Absolute Manual 0.13 K/mm3 (0.02-0.50); Eosinophils Percent Manual 1 % (0-4); Lymphocytes Absolute Manual 5.83 K/mm3 (1.1-4.5); Monocytes Absolute Manual 0.55 K/mm3 (0.1-0.90); Monocytes Percent Manual 4 % (3-9); Neutrophils Absolute Manual 7.36 K/mm3 (1.3-6.7); Neutrophils Percent Manual 52 % (46-73); Platelet Clumps Present; Platelet Estimate Adequate (Adequate); Schistocytes None Seen; Total Cells Counted 100
[2025-03-08 00:17] LABS: Atypical Lymphocytes Present
[2025-03-08 00:19] LABS: Creatine Kinase 99 U/L (30-135)
--- OUTSIDE RECORDS SUMMARY | 2025-03-08 00:49 | XMS_ITS ---
Author Organization [facility] est[facility] Office Address [address] [place] [address] Care Team Providers Care Senior Ux Designer Name Role Phone ThrasherVuJon Unavailable [phone] BAKARI LEE Unavailable [phone] Problems Problem Type SNOMED Code ICD Code Onset Dates Problem Status W/U Status Risk Notes Problem Chronic kidney disease stage 2 (602187339) Chronic kidney disease, stage 2 (mild) (N18.2) Active confirmed Problem Elevation of levels of liver transaminase levels (R74.01) Active confirmed Problem Hyperlipidemia (62119447) Hyperlipidemia, unspecified (E78.5) Active confirmed Problem Diabetic renal disease (402838345) Type 2 diabetes mellitus with diabetic chronic kidney disease (E11.22) Active confirmed Problem Metabolic disorder (89752336) Metabolic disorder, unspecified (E88.9) Active confirmed Problem Disturbance in speech (89649444) Unspecified speech disturbances (R47.9) Active confirmed Problem Fatty liver (606232345) Fatty (change of) liver, not elsewhere classified (K76.0) Active confirmed Encounters Encounter Location Date Provider Diagnosis [place] [facility] [address] [facility] 15 [place] [address] 02/20/2025 Jon Thrasher Chronic kidney disease, stage [...] Name:Jon Price , 03/27/2025 02:15:00 PM, [address] [facility] [address], [place], [facility], Progress Notes * Manuel NAVAOB:[birth year] (39 yo F)Acc No.[id number]:02/20/2025 Progress Notes Patient: Stephani MONSALVE Provider: Leo PAT MD, F.A.C.P, F.A.S.N. :1985 A ge:39 Y S ex:Female Date:02/20/2025 Address:[address] [place] [address] Subjective: * Chief Complaints: * * Medical [...] Treatment: * Billing Information: * Visit Code: 43473 Office Visit, New Pt., Level 5. * Procedure Codes: * Electronic signature of Mallory Thrasher MD on 03/08/2025 at 12:49 AM CDT Sign off status: Pending * Provider: Leo PAT MD, F.A.C.P, F.A.S.N. Date: 0 02/20/2025 Generated for Printing/Faxing/eTransmitting on: 0 03/08/2025 12:49 AM CDT
--- OUTSIDE RECORDS SUMMARY | 2025-03-08 00:49 | XMS_ITS | Patient Health Record ---
Author Organization [facility] Office Address [address] [place] [address] Care Team Providers Care Cloth Shader Name Role Phone ThrasherVuJon Unavailable [phone] BAKARI LEE Unavailable [phone] Reason For Referral No Information Problems Problem Type SNOMED Code ICD Code Onset Dates Problem Status W/U Status Risk Notes Problem Diabetic renal disease (689837950) Type 2 diabetes mellitus with diabetic chronic kidney disease (E11.22) Active confirmed Problem Hyperlipidemia (33970547) Hyperlipidemia, unspecified (E78.5) Active confirmed Problem Metabolic disorder (41750197) Metabolic disorder, unspecified (E88.9) Active confirmed Problem Fatty liver (448494653) Fatty (change of) liver, not elsewhere classified (K76.0) Active confirmed Problem Chronic kidney disease stage 2 (422395202) Chronic kidney disease, stage 2 (mild) (N18.2) Active confirmed Problem Disturbance in speech (86032788) Unspecified speech disturbances (R47.9) Active confirmed Problem Elevation of levels of liver transaminase levels (R74.01) Active confirmed Encounters Encounter Location Date Provider Diagnosis [place] [facility] [address] [facility] 15 [place] [address] 02/20/2025 Jon Thrasher Chronic kidney disease, stage [...] Name:Jon Thrasher , 03/27/2025 02:15:00 PM, [address] [facility] [address], [place], [address],
--- OUTSIDE RECORDS SUMMARY | 2025-03-08 00:49 | XMS_ITS | CONTINUITY OF CARE DOCUMENT ---
Author Name shailesh cash Address Unknown Organization [facility] Address [address] [facility] [address] [place] [address] Phone [phone] Care Team Providers Care Trailer Chief Name Role Phone Dusty Thrasher MD Unavailable [phone] Dusty Thrasher MD Unavailable [phone] INSURANCE PROVIDERS Payer name Policy type / Coverage type [place] red republican ID [facility] [id number] AETNA BETTER [place] Medicaid [id number]
--- OUTSIDE RECORDS SUMMARY | 2025-03-08 00:49 | XMS_ITS | Clinical Summary ---
Author Organization [facility] Address [address] [place] [id number] Care Team Providers Care Mesmerist Name Role Phone Elise Hemphill APRN, EXTRACTIONS TECHNICIAN Unavailable Nicolle Ayala MD Primary Care Provider Allergies No known active allergies Medications pantoprazole (PROTONIX) 40 MG Tablet Delayed Response 06/28/2024 Active famotidine (PEPCID) 40 MG Tablet 06/30/2024 Active DULoxetine (CYMBALTA) [address] Particles 09/08/2024 Active DULoxetine (CYMBALTA) [address] Particles 09/02/2024 Active metoclopramide (REGLAN) 10 MG Tablet 06/22/2024 Active gabapentin (NEURONTIN) 600 MG Tablet 09/10/2024 Active colestipol (COLESTID) 1 GM Tablet 07/14/2024 Active dicyclomine (BENTYL) 20 MG Tablet 06/08/2024 Active cyclobenzaprine (FLEXERIL) 10 MG Tablet 07/09/2024 Active ibuprofen (MOTRIN) 800 MG Tablet 07/05/2024 Active buPROPion (WELLBUTRIN) 75 MG Tablet 09/12/2024 Active propranolol (INDERAL) 10 MG Tablet 06/27/2024 Active B Complex Vitamins (VITAMIN B COMPLEX PO) Take by mouth. Active Ascorbic Acid (VITAMIN C PO) Take by mouth. Active sucralfate (CARAFATE) 1 GM TabletIndication s:Gastroesophage al reflux disease, unspecified whether esophagitis present Take 1 Tablet by mouth 3 times daily. 90 Tablet 1 09/25/2024 Active amitriptyline (ELAVIL) 25 MG TabletIndication s:Generalized abdominal pain TAKE 1 TABLET BY MOUTH EVERY NIGHT 90 Tablet 12/22/2024 Active Multiple Vitamins-Mineral s (CENTRUM PO) Take by mouth. Active lisinopril (PRINIVIL, ZESTRIL) 2.5 MG Tablet Take 2.5 mg by mouth daily. Active metFORMIN (GLUCOPHAGE) 500 MG Tablet Take 500 mg by mouth daily. Active Active Problems No known active problems Encounters Date Type Department Care Team Description 12/22/2024 Refill [facility] [address] [place] [phone] Elise Hemphill APRN, FOREST Medication Refill from Last 3 Months Social History Tobacco Use Types Packs/Day Years Used Date Smoking Tobacco: Former Cigarettes Smokeless Tobacco: Never Tobacco Cessation:Counseling Given: Not Answered Alcohol Use Standard Drinks/Week Comments Not Currently 0 (1 standard drink = 0.6 oz pur e alcohol) Sexually Active Control Partners Comments Yes Male Comments Unknown Sex and Gender Information Value Date Recorded Sex Assigned at Not on file Legal Sex Female 3:29 PM MENTAL HEALTH THERAPIST Gender Identity Not on file Sexual Orientation Not on file Last Filed Vital Signs Vital Sign Reading Time Taken Comments Blood Pressure 134/86 09/25/2024 11:15 AM MENTAL HEALTH THERAPIST Pulse 80 09/25/2024 11:15 AM MENTAL HEALTH THERAPIST Temperature 36.7 C (98 F) 09/25/2024 11:15 AM MENTAL HEALTH THERAPIST Respiratory Rate 14 09/25/2024 11:15 AM MENTAL HEALTH THERAPIST Oxygen Saturation 97% 09/25/2024 11:15 AM MENTAL HEALTH THERAPIST Inhaled Oxygen Concentration - - Weight 90.3 kg (199 lb) 09/25/2024 11:15 AM MENTAL HEALTH THERAPIST Height 160 cm (5' 3) 03/05/2025 7:29 AM CDT Body Mass Index 35.25 09/25/2024 11:15 AM MENTAL HEALTH THERAPIST Plan of Treatment Upcoming Encounters Date Type Department Care Team (Late st Contact Info) Description 03/27/2025 3:30 PM CDT Office Visit [facility] [address] [place] [phone] Elise Hemphill APRN, EXTRACTIONS TECHNICIAN [address] [place] [address] 08/20/2025 3:30 PM MENTAL HEALTH THERAPIST Office Visit [facility] [address] [place] [phone] Nelson Wadsworth MD [address] [place] [phone] Health Maintenance Due Date Last Done Comments Hepatitis C Virus (HCV) Screening 1983 Mammogram 1983 TdaP Immunization 1983 Hepatitis B Immunization (1 of 3 - 19+ 3-dose series) 2002 Pap Smear 2004 Cervical Cancer Screening (CCS) 2013 HPV/Cotest 2013 Discussion re Starting/Frequ ency of Mammograms 2023 SARS-COV-2 Immunization ( season) 2024 Influenza Immunization (Seas on Ended) 2025 Respiratory Syncytial Virus (RSV) Immunization (Adult) (1 - 1-dose 75+ series) 2058 Human Papillomavirus (HPV) Immunization Aged Out No longer eligible b ased on patient's age to complete this topic Meningococcal Immunization (ACWY) Aged Out No longer eligible based on patient's age to complete this topic Pneumococcal Immunization Combined Aged Out No longer eligible based on patient's age to complete this topic Rotavirus Immunization Aged Out No lo nger eligible based on patient's age to complete this topic Insurance MEDICARE C [facility] Care Teams Mesmerist Relationship Specialty Start Date End Date Nicolle Ayala MD [address] [place] [address] PCP - General Internal Medicine 03/04/25 Elise Hemphill APRN, EXTRACTIONS TECHNICIAN [address] [place] [address] Nurse Practitioner Advanced Practice Nurse 09/25/24
[2025-03-08] MEDS: diphenhydrAMINE HCl INJ 50 MG/ML VIAL 25 MG IV PUSH (01:31)
[2025-03-08] MEDS: METOCLOPRAMIDE HCL INJ 10 MG/2 ML VIAL IV PUSH (01:31)
[2025-03-08] MEDS: MORPHINE SULFATE (*CRX) 4 MG/ML INJ IV PUSH (01:31)
[2025-03-08 01:33] VITALS: BP 117/73; PULSE 88; RESP 19; O2SAT 100
[2025-03-08] MEDS: SODIUM CHLORIDE 0.9% IV 1,000 ML 999 ML (01:54)
--- NOTE | 2025-03-08 01:54 | PC.NURSE ---
per vorb by edp dr. ford patient to receive a bolus of fluids of normal saline at a rate of 999mls/ hour. this rn used closed loop communication to confirm medication, time, route, patient, and dosage.
--- NOTE | 2025-03-08 02:31 | ED.ABDPAIN ---
HPI - Abdominal Pain General Chief Complaint: Abdominal Pain Stated Complaint: RUQ pain x 5 days, No GB Time Seen by Provider: 03/08/25 00:28 History of Present Illness HPI narrative: 39-year-old female presenting to the emergency depart with right-sided flank and upper abdominal pain. She states is been going on for about 5 days and she called her primary doctor who thought she might be having urinary infection so prescribed antibiotics. She has been taking antibiotics without significant relief. Has tried ice and heat packs to her right flank without relief. Taking Tylenol ibuprofen. Patient sources mild nausea without any fever, chills, chest pain, shortness a breath, left-sided pain or left/right lower abdominal pain. No pelvic pain. No history of kidney stones. No trauma or injury. She was otherwise in her normal state of health recently. Related Data Home Medications ?Medication ?Instructions ?Recorded ?Confirmed ?Last Taken ?Type famotidine 20 mg tablet 20 mg PO 3XW 05/05/21 06/08/21 Unknown History Allergies Allergy/AdvReac Type Severity Reaction Status Date / Time No Known Allergies Allergy Verified 03/07/25 23:39 Review of Systems Review of Systems: As reviewed above in HPI [facility] Past Medical History Medical History (Updated 03/08/25 @ 03:27 by Gorge Bennett MD) Anxiety Chronic left shoulder pain Speech impediment Intellectual disability GERD without esophagitis Chronic low back pain Surgical History Surgical History (Updated 06/08/21 @ 10:42 by Jory He MD) History of cholecystectomy 2014 Family History Family History Mother Patient's mother is in good health Father Family history of malignant neoplasm Patient's father is Other Cerebrovascular accident Diabetes mellitus Social History Social History Smoking packs per day: 0.5 Smoking cigarettes per day: 10.0 Smoking status: Former smoker Second hand tobacco smoke exposure: No Smoking end date: 10/08/12 Alcohol intake: never Exam Narrative: GENERAL: [Well-appearing, well-nourished, and in no acute distress.] HEAD: [Normocephalic, atraumatic.] EYES: [PERRLA and EOMI.] ENT: Nares clear, no rhinorrhea or epistaxis. Mucous membranes moist. NECK: Supple. CHEST: [Clear to auscultation. No respiratory distress.] HEART: [Regular rate and rhythm]. No murmur heard. [Normal peripheral pulses.] ABDOMEN: [Soft, nondistended], mildly tender in the right upper quadrant/flank, [No rigidity or guarding] EXTREMITIES: Normal range of motion. [No edema.] SKIN: Warm, dry, no rash. NEURO: [No focal deficits]. Alert and oriented [x3.] Speech impediment is noted but chronic PSYCH: [Normal mood and affect.] Course Vital Signs Vital signs: Vital Signs Temperature 36.3 C L 03/07/25 20:28 Pulse Rate 101 H 03/07/25 20:28 Respiratory Rate 18 03/07/25 20:28 Blood Pressure 138/84 03/07/25 20:28 Pulse Oximetry 99 03/07/25 20:28 Oxygen Delivery Room Air 03/07/25 20:28 Temperature 36.3 C L 03/07/25 20:28 Pulse Rate 97 03/08/25 03:58 Respiratory Rate 16 03/08/25 03:58 Blood Pressure 143/78 H 03/08/25 03:58 Pulse Oximetry 98 03/08/25 03:58 Oxygen Delivery Room Air 03/07/25 20:28 MDM - Abdominal Pain MDM Narrative Medical decision making narrative: 39-year-old female presenting to the emergency room with right flank/right upper quadrant abdominal pain. Symptoms going on for several days and recently prescribed antibiotics by her primary care provider for suspected urinary tract infection. Patient has no urinary complaints at this time, no fever, chills. Mild nauseousness and reproducible pain with palpation the right upper quadrant/flank. She has no overlying skin changes. Not uncomfortable appearing with normal vital signs with any tachycardia, fever, hypoxia blood pressure concerns. Patient has had her gallbladder removed already. Suspicion presently is for gastroenteritis, colitis, renal colic, kidney stone, ascending urinary infection versus pyelonephritis. Low suspicion for serious intra-abdominal infection given her lack of fever, tachycardia or significant findings on exam. CBC CMP, lipase, urinalysis ordered as well as a CT scan with contrast. She was given combination medications including morphine and Reglan/Benadryl for nausea and pain control. Fluid bolus ordered. Laboratory studies show slight leukocytosis of 13.9 but otherwise hemoglobin is normal. No anemia. No platelet concerns. Electrolytes unremarkable. Normal renal function, mildly elevated LFTs but not significant. Normal bilirubin. Negative lipase. Negative test negative urinalysis. CT scan of the abdomen pelvis with contrast shows no acute findings. Patient had symptomatic improvement with medications and safe for discharge given unremarkable workup. Follow-up with primary care provider encouraged and return precautions given. Medical Records Attestation: I reviewed the patient's medical records. Lab Data Attestation: I reviewed the patient's lab results. 03/07/25 23:37 03/07/25 23:37 Labs: Lab Results 03/07/25 03/07/25 Range/Units 23:37 23:41 WBC 13.9 H (4.5-10.0) K/mm3 RBC 4.24 (4.2-5.4) M/mm3 Hgb 13.2 (12.0-15.0) g/dL Hct 38.9 (37.0-47.0) % MCV 91.7 (80-100) fl MCH 31.1 (26-34) pg MCHC 33.9 (32-36) g/dl RDW 12.4 (11.5-14.5) % Plt Count 276 (150-375) k/mm3 MPV 9.7 (7.4-10.4) fl Immature Gran % (Auto) Not Reportable Neut % (Auto) Not Reportable Lymph % (Auto) Not Reportable [place] % (Auto) Not Reportable Eos % (Auto) Not Reportable Baso % (Auto) Not Reportable Lymph # (Auto) Not Reportable [place] # (Auto) Not Reportable Eos # (Auto) Not Reportable Baso # (Auto) Not Reportable Abs Immat Gran (auto) Not Reportable Absolute Neuts (auto) Not Reportable Absolute Nucleated RBC Not Reportable Total Counted 100 Neutrophils % (Manual) 52 (46-73) % Band Neutrophils % 1 (0-6) % Lymphocytes % (Manual) 42.0 (18-44) % Monocytes % (Manual) 4 (3-9) % Eosinophils % (Manual) 1 (0-4) % Nucleated RBC % Not Reportable Abs Neuts (Manual) 7.36 H (1.3-6.7) K/mm3 Abs Lymphs (Manual) 5.83 H (1.1-4.5) K/mm3 Abs Monocytes (Manual) 0.55 (0.1-0.90) K/mm3 Absolute Eos (Manual) 0.13 (0.02-0.50) K/mm3 Atypical Lymphocytes Present Platelet Estimate Adequate (Adequate) Clumped Platelets Present Schistocytes None seen Sodium 139 (137-145) mmol/L Potassium 3.8 (3.4-5.0) mmol/L Chloride 102 (98-107) mmol/L Carbon Dioxide 25 (22-30) mmol/L Anion Gap 12 (4-12) mmol/L BUN 12 D (7-17) mg/dL Creatinine 0.62 L (0.7-1.0) mg/dL Estim Creat Clear Calc 107 ml/min Estimated GFR > 60 (59 - ) Glucose 148 H (65-110) mg/dL Calcium 9.8 (8.4-10.2) mg/dL Total Bilirubin 0.3 (0.2-1.3) mg/dL AST 46 H (14-36) U/L ALT 38 H (6-35) U/L Alkaline Phosphatase 92 (38-126) U/L Total Creatine Kinase 99 (30-135) U/L Total Protein 8.0 (6.3-8.2) g/dL Albumin 4.7 (3.5-5.1) g/dL Lipase 102 (23-300) U/L Urine Color Yellow (Yellow) Urine Appearance Clear (Clear) Urine pH 6.0 (5.0-9.0) Ur Specific [place] 1.007 (1.001-1.035) Urine Protein Negative (Negative) mg/dL Urine Glucose (UA) Negative (Negative) mg/dL Urine Ketones Negative (Negative) mg/dL Ur Blood (Man) Negative (Negative) Urine Nitrate Negative (Negative) Urine Bilirubin Negative (Negative) Urine Urobilinogen 0.2 (<2.0) mg/dL Leukocyte Esterase Rfl Negative (Negative) JOHN/UL POC Urine HCG, Qual Negative (Negative) Imaging Data Attestation: I personally reviewed and interpreted this imaging study as follows: My impression: No acute abnormalities per stat read Discharge Plan Discharge Clinical Impression: Abdominal wall pain in right flank, Abdominal pain Patient Disposition: Home Condition: Stable Instructions: Antibiotic Form, Abdominal Pain (ED) Additional Instructions: Your imaging studies are negative for any acute abnormalities. Follow-up with your regular doctor. We will prescribe some medications for topical pain control. Return with any emergencies. Patient Language: [place] Prescriptions: New diclofenac sodium 1 % gel 2 g topical QID Qty: 50 0RF Rx Instructions: apply to single elbow, wrist or hand; for hand includes palm/fingers/back of hand lidocaine 5 % adhesive patch,medicated 1 patch topical DAILY Qty: 15 0RF Rx Instructions: leave on most painful area for up to 12 hrs No Action famotidine 20 mg tablet 20 mg PO 3XW naproxen 500 mg tablet 500 mg PO BID Qty: 30 0RF esomeprazole magnesium [Nexium] 40 mg capsule,delayed release(DR/EC) 40 mg PO DAILY Qty: 90 0RF potassium chloride 20 mEq tablet extended release 20 meq PO BID Qty: 180 0RF cyclobenzaprine 5 mg tablet 5 mg PO TID PRN (Reason: muscle spasm) Qty: 30 0RF duloxetine 60 mg capsule,delayed release(DR/EC) 60 mg PO DAILY Qty: 90 1RF bupropion HCl 75 mg tablet 75 mg PO DAILY Qty: 90 1RF Follow-up/Referrals: Jory He MD [Primary Care Provider] - Time of Disposition: 03:30
[2025-03-08 02:57] VITALS: BP 141/78; PULSE 115; RESP 16; O2SAT 98
[2025-03-08 03:58] VITALS: BP 143/78; PULSE 97; RESP 16; O2SAT 98
== END 2025-03-08 03:59 | disposition home or self-care (01) ==
PROVIDERS: Emergency Provider Student in an Organized Health Care Education/Training Program; PCP Family Medicine
DX: R10.11 Right upper quadrant pain (principal); F41.9 Anxiety disorder, unspecified; Z87.891 Personal history of nicotine dependence
CPT/HCPCS: 36415; 74177; 80053; 81003; 81025; 82550; 83690; 85025; 96361; 96374; 96375; 99284; J1200; J2270; J2765; J7030; Q9967